=== PATIENT | male | born 1940 | race Asian ===

== ENCOUNTER 2019-05-26 22:24 | Inpatient (IN) | payer MEDICARE, OTHER ==
[~2019-05-26] VITALS: Ht 154.9 cm; Wt 47.6 kg
[2019-05-26 22:24] VITALS: BP_SYST 121
--- NOTE | 2019-05-26 22:24 | NUR ---
Pt BIB ALS, placed to ER bed 01, to gown, to cardiac. [facility] for evaluation r/t decreases O2 saturations and respiratory distress. Pt alert, responsive AAOx0, [id number]-[id number] dependent. Rhonchi to BBS, even respirations, mildly labored. RT at bedside, vent settings: F12, Vt 400, FiO2 100%, PEEP 5, PIP 35 with SPO2 at 100%. PICC in place to RUE, dsg secure and intact. G-tube secure, dsg clean. F/C in place with yellow urine to bag.
--- NOTE | 2019-05-26 22:30 | NUR ---
Dr. Coon at bedside to assess pt.
[2019-05-26] MEDS ORDERED: PIPERACILLIN/TAZO 3.38 GM in D5W 50 ML IV ONE (22:45)
[2019-05-26] MEDS ORDERED: NS 500 ML IV ONE (23:00)
--- NOTE | 2019-05-26 23:05 | NUR ---
# 18 gauge PICC present to RUE with dsg secure and intact, dated 05/26/19. Blood return noted, easy NS flush. 10 mL waste drawn and discarded. Blood for lab drawn from site and sent to lab. No evidence of infiltration noted.
[2019-05-26] MEDS ORDERED: PIPERACILLIN/TAZOBACTAM 3.375 GM/VIAL (ZOSYN) IV ONE (23:10)
[2019-05-26 23:29] LABS: HEMATOCRIT 28.2 % (36-54); HEMOGLOBIN 9.2 g/dL (14.0-18.0); LYMPHOCYTES # (AUTO) 0.3 K/uL (1.0-5.5); LYMPHOCYTES % (AUTO) 2.3 % (20.5-51.5); MEAN CORPUSCULAR HEMOGLOBIN 35 pg (27-31); MEAN CORPUSCULAR HGB CONC 33 % (32-36); MEAN CORPUSCULAR VOLUME 106 fL (79.0-98.0); MONOCYTES # (AUTO) 0.6 K/uL (0.0-1.0); MONOCYTES % (AUTO) 5.1 % (1.7-9.3); NEUTROPHILS # (AUTO) 10.4 K/uL (1.8-7.7); NEUTROPHILS % (AUTO) 92.6 % (40.0-70.0); PLATELET COUNT (AUTO) 141 K/uL (130-430); RED BLOOD CELL COUNT(AUTO) 2.66 MIL/uL (4.2-6.2); RED CELL DISTRIBUTION WIDTH 18.5 % (9.0-15.0); WHITE BLOOD COUNT (AUTO) 11.3 K/uL (4.8-10.8)
[2019-05-26 23:44] LABS: ANION GAP 9 (5-15); CALCIUM 8.9 mg/dL (8.4-11.0); CHLORIDE 107 mmol/L (98-107); CREATININE 1.92 mg/dL (0.55-1.30); GLUCOSE 181 mg/dL (70-99); SODIUM SERUM 139 mmol/L (136-145)
[2019-05-26 23:47] LABS: PROTHROMBIN TIME 9.6 SECS (9.5-12.5)
[2019-05-26 23:49] LABS: ALANINE AMINOTRANSFERASE 29 U/L (12-78); ALBUMIN 2.7 g/dL (3.4-4.8); ASPARTATE AMINOTRANSFERASE 15 U/L (10-37); TOTAL BILIRUBIN 0.3 mg/dL (0.0-1.0)
[2019-05-26 23:51] LABS: POTASSIUM 6.5 mmol/L (3.5-5.1)
[2019-05-26 23:52] LABS: UREA NITROGEN, BLOOD 130 mg/dL (8-21)
[2019-05-27] VITALS (23 sets, daily range): BP systolic 69–120
[2019-05-27] MEDS ORDERED: NACL 0.9% 1,000 ML IV ONE (00:30)
[2019-05-27] MEDS ORDERED: SODIUM POLYSTYRENE SULFONATE 15 GM/60 ML UDBTL PO ONE (00:30)
--- NOTE | 2019-05-27 02:23 | NUR ---
Pt moved to bed 4
[2019-05-27] MEDS ORDERED: SODIUM POLYSTYRENE SULFONATE 15 GM/60 ML UDBTL ONE (02:36)
[2019-05-27 02:52] LABS: BILIRUBIN,URINE NEGATIVE (NEGATIVE); BLOOD, URINE 2+ (NEGATIVE); CLARITY/URINE CLEAR (CLEAR); COLOR,URINE YELLOW (YELLOW); GLUCOSE,URINE TRACE (NEGATIVE); KETONES,URINE NEGATIVE (NEGATIVE); LEUKOCYTE ESTERASE ,URINE NEGATIVE (NEGATIVE); NITRITE, URINE NEGATIVE (NEGATIVE); PROTEIN URINE 2+ (NEGATIVE); UROBILINOGEN,URINE 0.2 (0.2-1.0)
[2019-05-27 03:12] LABS: BACTERIA,URINE FEW /HPF (None Seen); WBC,URINE 0-3 /HPF (0-3)
--- NOTE | 2019-05-27 03:25 | NUR ---
Pt pulling at trach tube and disconnects from Vent. Immediately replaced. No respiratory distress noted, SPO2 96%. Pt also had a large BM and puts his hands in the BM. Pt cleaned, new gown applied, bed linens changed. Dr. Coon notified. Pt to receive Ativan.
[2019-05-27] MEDS ORDERED: LORazepam 2 MG/ML VIAL IVP ONE ×2 (03:30→05:45)
--- NOTE | 2019-05-27 04:25 | NUR ---
Pt peeled off edge of dsg to RUE PICC line. Old dsg removed, no redness or swelling to PICC insertion site. Site cleaned using sterile technique and new dsg applied. Good blood return noted, easy NS flush. NS bolus continues to infuse without difficulty. VSS. Mild tachypnea noted, SPO2 96%, no changes in Vent settings. Dr. Coon at bedside. X-ray to confirm PICC line placement and Neb tx ordered. RT notified.
[2019-05-27] MEDS ORDERED: IPRATROPIUM BROM 0.5 MG/2.5 ML VIAL.NEB (ATROVENT) INH ONE (04:30)
[2019-05-27] MEDS ORDERED: ALBUTEROL SULFATE 0.083% 2.5 MG/3 ML VIAL.NEB INH ONE (04:30)
--- NOTE | 2019-05-27 04:30 | NUR ---
Dr. Coon notified of increased aggitation. Order received for soft wrist restraints.
--- NOTE | 2019-05-27 04:38 | NUR ---
X-ray at bedside.
--- NOTE | 2019-05-27 04:45 | NUR ---
RT at bedside to administer Neb tx.
--- NOTE | 2019-05-27 05:25 | NUR ---
Dark brown BM. Pt cleaned. Redness and excoriation noted to sacrum and inner gluteal folds. New gown and linens applied.
[2019-05-27] MEDS ORDERED: NOREPINEPHRINE BITARTRATE 4 MG in NS 246 ML IV ONE (05:30)
--- NOTE | 2019-05-27 05:40 | NUR ---
# 16 FR Coude Clarke catheter with use of sterile technique. No urinary return noted at this time. Dr. Coon notified. Bedside drainage bag placed below level of bladder. Pt tolerated procedure fair. Patient arrived with clarke in place, changed due to standard of practice prior to admission. Patient unable to toilet self.
[2019-05-27] MEDS ORDERED: CALCIUM GLUCONATE 1 GM in NS 100 ML IV ONE (05:45)
[2019-05-27] MEDS ORDERED: SODIUM BICARBONATE 8.4% JECT 50 MEQ/50 ML SYRINGE IVP ONE ×3 (05:45→19:00)
--- NOTE | 2019-05-27 06:04 | NUR ---
B/P 70/46, P 93. Levophed drip started at 2 mcg/min.
[2019-05-27] MEDS ORDERED: NOREPINEPHRINE 4 MG/4 ML VIAL IV ONE (06:12)
[2019-05-27] MEDS ORDERED: NOREPINEPHRINE BITARTRATE 4 MG in NS 246 ML IV PRN (06:15)
--- NOTE | 2019-05-27 06:15 | NUR ---
B/P 74/38, P 92. Levophed increased to 4 mcg/min.
--- NOTE | 2019-05-27 06:20 | NUR ---
B/P 89/43, HR 101. Levophed increased to 6 mcg/min.
[2019-05-27] MEDS ORDERED: VANCOMYCIN HCL 1,000 MG in NS 250 ML IV ONE ×2 (06:30→10:00)
--- NOTE | 2019-05-27 06:30 | NUR ---
B/P 87/53, P 99, SPO2 97% with no changes in Vent Settings. Levophed drip increased to 8 mcg/min.
--- NOTE | 2019-05-27 06:45 | NUR ---
B/P 78/30, P 91, SPO2 98% with no changes in vent settings. Levophed drip increased to 10 mcg/min.
--- NOTE | 2019-05-27 06:55 | NUR ---
B/P 87/53, P 96. Levophed increased to 12 mcg/min.
--- NOTE | 2019-05-27 07:05 | NUR ---
B/P 76/41, P 91. Levophed increased to 14 mcg/min.
--- NOTE | 2019-05-27 07:10 | NUR ---
Report Report received from Can MITCHELL using SBAR. Pt is currently in ER.
[2019-05-27] MEDS ORDERED: VANCOMYCIN HCL 1000 MG/VIAL IV ONE (07:34)
[2019-05-27] MEDS ORDERED: VITD2000 PO (07:52)
[2019-05-27] MEDS ORDERED: FURO-150 PO (07:52)
[2019-05-27] MEDS ORDERED: MULT9LIQ PO (07:52)
[2019-05-27] MEDS ORDERED: GLUC1VIA4 IJ (07:52)
[2019-05-27] MEDS ORDERED: INSU100V42 (07:52)
[2019-05-27] MEDS ORDERED: FAMO-132 PO (07:52)
[2019-05-27] MEDS ORDERED: BRI.2% LEFT EYE (07:52)
[2019-05-27] MEDS ORDERED: CEL250 PO (07:52)
[2019-05-27] MEDS ORDERED: PREDEYE1% LEFT EYE (07:52)
[2019-05-27] MEDS ORDERED: PSYL1POW MC (07:52)
[2019-05-27] MEDS ORDERED: GUAI100L55 PO (07:52)
[2019-05-27] MEDS ORDERED: ROSU10TA2 PO (07:52)
[2019-05-27] MEDS ORDERED: MES60 PO (07:52)
[2019-05-27] MEDS ORDERED: SENN17.24 PO (07:52)
[2019-05-27] MEDS ORDERED: EPOE20005 IJ (07:52)
[2019-05-27] MEDS ORDERED: L. A1POW4 GT (07:52)
[2019-05-27] MEDS ORDERED: FLUC200T PO (07:52)
[2019-05-27] MEDS ORDERED: CYAN100010 PO (07:52)
[2019-05-27] MEDS ORDERED: MYL80 PO (07:52)
[2019-05-27] MEDS ORDERED: PRED5TAB PO (07:52)
[2019-05-27] MEDS ORDERED: XALEYE OP (07:52)
[2019-05-27] MEDS ORDERED: ACET-2165 PO (07:52)
[2019-05-27] MEDS ORDERED: ATOR20TA64 PO (07:52)
[2019-05-27] MEDS ORDERED: ASA81 PO (07:52)
[2019-05-27] MEDS ORDERED: DORZ10DR13 LEFT EYE (07:52)
[2019-05-27] MEDS ORDERED: LOSA50TA3 PO (07:52)
[2019-05-27] MEDS ORDERED: CAT.1 PO (07:52)
--- NOTE | 2019-05-27 07:52 | NUR ---
Medication reconciliation completed with information provided by Facility. Any prior medication reconciliation on file was reviewed and corrected.
--- NOTE | 2019-05-27 08:05 | NUR ---
Patient will be admitted to care of Dr. Beth. Admitted to ICU unit. Will go to room 2. Belongings list completed. Complete and up to date summary report printed. SBAR report to be given at bedside with opportunity for questions.
--- NOTE | 2019-05-27 08:05 | NUR ---
Transferred Pt arrived to ICU bed 2 via gurney from ER. RT is at bedside with pt assisting with transfer. Pt is connected to in room monitor.
[2019-05-27] MEDS ORDERED: ACETAMINOPHEN 325 MG TABLET PO PRN (08:30)
[2019-05-27] MEDS ORDERED: cloNIDine HCL 0.1 MG TABLET PO PRN (08:30)
--- NOTE | 2019-05-27 08:40 | NUR ---
CHG Pt provided CHG with new linen and gown
[2019-05-27] MEDS ORDERED: GLUCAGON,HUMAN RECOMBINANT 1 MG VIAL SUBCUT PRN (08:45)
[2019-05-27] MEDS ORDERED: PREDNISONE 5 MG TABLET PO SCH (09:00)
[2019-05-27] MEDS ORDERED: ASPIRIN 81 MG TAB.CHEW PO SCH (09:00)
[2019-05-27] MEDS ORDERED: LACTOBACILLUS RHAMNOSUS GG 1 CAP CAPSULE PO SCH (09:00)
[2019-05-27] MEDS ORDERED: MYCOPHENOLATE MOFETIL 250 MG CAPSULE PO SCH (09:00)
[2019-05-27] MEDS ORDERED: CYANOCOBALAMIN 1000 mCg TABLET PO SCH (09:00)
[2019-05-27] MEDS ORDERED: FUROSEMIDE 20 MG TABLET PO SCH (09:00)
[2019-05-27] MEDS ORDERED: FAMOTIDINE 20 MG TABLET PO SCH (09:00)
[2019-05-27] MEDS ORDERED: MULTIVIT-MINERALS/FERROUS GLUC 15 ML UDC PO SCH (09:00)
[2019-05-27] MEDS ORDERED: SIMETHICONE 80 MG TAB.CHEW PO SCH (09:00)
[2019-05-27] MEDS ORDERED: HYDROCORTISONE SOD SUCC 100 MG/2 ML VIAL IVP ONE (09:00)
[2019-05-27] MEDS ORDERED: LOSARTAN POTASSIUM 50 MG TABLET (COZAAR) PO SCH (09:00)
[2019-05-27] MEDS ORDERED: CHOLECALCIFEROL (VITAMIN D3) 2,000 UNIT TABLET PO SCH (09:00)
[2019-05-27] MEDS ORDERED: PYRIDOSTIGMINE BROMIDE 60 MG TABLET PO SCH (09:00)
[2019-05-27] MEDS ORDERED: PSYLLIUM HUSK 1 PKT PACKET PO SCH (09:00)
[2019-05-27] MEDS ORDERED: FLUCONAZOLE 200 MG TABLET (DIFLUCAN) PO SCH (09:00)
[2019-05-27 09:17] LABS: EOSINOPHILS % (AUTO) 0.2 % (0.0-4.0); HEMATOCRIT 24.8 % (36-54); HEMOGLOBIN 8.1 g/dL (14.0-18.0); LYMPHOCYTES # (AUTO) 0.3 K/uL (1.0-5.5); MEAN CORPUSCULAR HEMOGLOBIN 35 pg (27-31); MEAN CORPUSCULAR HGB CONC 33 % (32-36); MEAN CORPUSCULAR VOLUME 107 fL (79.0-98.0); MONOCYTES # (AUTO) 0.2 K/uL (0.0-1.0); MONOCYTES % (AUTO) 3.2 % (1.7-9.3); NEUTROPHILS # (AUTO) 4.3 K/uL (1.8-7.7); NEUTROPHILS % (AUTO) 90.6 % (40.0-70.0); PLATELET COUNT (AUTO) 95 K/uL (130-430); RED BLOOD CELL COUNT(AUTO) 2.32 MIL/uL (4.2-6.2); RED CELL DISTRIBUTION WIDTH 18.7 % (9.0-15.0); WHITE BLOOD COUNT (AUTO) 4.7 K/uL (4.8-10.8)
[2019-05-27 09:34] LABS: ANION GAP 13 (5-15); CALCIUM 8.2 mg/dL (8.4-11.0); CHLORIDE 118 mmol/L (98-107); GLUCOSE 107 mg/dL (70-99); POTASSIUM 4.4 mmol/L (3.5-5.1); SODIUM SERUM 149 mmol/L (136-145)
[2019-05-27 09:38] LABS: ALANINE AMINOTRANSFERASE 20 U/L (12-78); ALBUMIN 1.9 g/dL (3.4-4.8); ASPARTATE AMINOTRANSFERASE 18 U/L (10-37); TOTAL BILIRUBIN 0.3 mg/dL (0.0-1.0)
[2019-05-27 09:40] LABS: UREA NITROGEN, BLOOD 120 mg/dL (8-21)
--- NOTE | 2019-05-27 09:57 | NUR ---
Consultation Paged for consult Dr. Fierro, spoke to Gayathri with the exchange.
--- NOTE | 2019-05-27 10:02 | NUR ---
Family Pt daughter in -law at bedside with pt. Informed pt's daughter in-law of call light and how to use. Will continue to monitor.
[2019-05-27] MEDS ORDERED: ACETAMINOPHEN 325 MG TABLET GT PRN (10:25)
[2019-05-27] MEDS ORDERED: cloNIDine HCL 0.1 MG TABLET GT PRN (10:27)
[2019-05-27] MEDS ORDERED: PREDNISONE 5 MG TABLET GT SCH (10:30)
[2019-05-27] MEDS ORDERED: COMMUNICATION ORDER XX ONE (10:30)
[2019-05-27] MEDS: D5NS 1,000 ML IV SCH ×3 (11:09→19:01)
[2019-05-27] MEDS: PIPERACILLIN/TAZOBACTAM 2.25 GM in NS 50 ML IV SCH ×3 (11:10→21:31)
[2019-05-27] MEDS: DORZOLAMIDE HCL/TIMOLOL MAL. 10 ML EYE DROPS (COSOPT) LEFT EYE SCH ×2 (11:14→21:29)
[2019-05-27] MEDS: BRIMONIDINE TARTRATE 0.2% 5 mL EYE DROPS LEFT EYE SCH ×2 (11:14→21:29)
[2019-05-27] MEDS: prednisoLONE 1% OPHTHALMIC SUSPN 5 ML OP SCH ×4 (11:15→21:29)
[2019-05-27] MEDS: guaiFENesin 200 MG/10 ML UDC GT SCH ×4 (11:27→23:19)
[2019-05-27] MEDS: PYRIDOSTIGMINE BROMIDE 60 MG TABLET GT SCH ×3 (13:50→21:30)
[2019-05-27] MEDS: HYDROCORTISONE SOD SUCC 100 MG/2 ML VIAL IVP SCH ×2 (13:50→21:30)
[2019-05-27] MEDS: LevALBUTEROL HCL 1.25 MG/0.5 ML *CONC.* VIAL.NEB (XOPENEX CONC.) INH SCH ×2 (14:01→19:30)
[2019-05-27] MEDS: SIMETHICONE 80 MG TAB.CHEW GT SCH ×2 (14:02→21:30)
[2019-05-27] MEDS: PSYLLIUM HUSK 1 PKT PACKET GT SCH ×2 (14:02→21:31)
--- NOTE | 2019-05-27 15:43 | NUR ---
Paged Dr. Patel for orders. Spoke with exchange.
[2019-05-27] MEDS ORDERED: EPOETIN ALFA 4,000 UNITS/ML VIAL SUBCUT SCH (17:00)
[2019-05-27] MEDS ORDERED: DEXTROSE 50%-WATER 50 ML DISP.SYRIN IVP PRN (17:15)
[2019-05-27] MEDS ORDERED: GLUCOSE 15 GM GEL (in 37.5 GM TUBE) PO PRN (17:15)
[2019-05-27] MEDS ORDERED: D5W 1,000 ML IV PRN (17:15)
--- NOTE | 2019-05-27 18:03 | NUR ---
MD Dr. Sylvia chin. spoke to Maria G with the exchange.
[2019-05-27] MEDS: INSULIN REGULAR, HUMAN 100 UNITS/ML, 10 ML VIAL (humuLIN R) SUBCUT PRN (18:11)
--- NOTE | 2019-05-27 18:24 | NUR ---
MD Dr. Fierro at bedside with pt
--- NOTE | 2019-05-27 18:40 | NUR ---
Feeding Spoke to pts daughter regarding, pt previously experienced a reaction to the previous feeding peptamen 1.5 causing "explosive diarrhea" that resulted in IAD. Pt was started on "Compleat" g-tube feeding last night prior to being transported to [facility]. Valerie was provided the suggestion to obtain that specific feeding from [facility], but Pts daughter Valerie stated that she would like for us to hold feeding until a coffin maker assess pt.
--- NOTE | 2019-05-27 18:50 | NUR ---
paged paged for Dr Ward, dialed . s/w Jerrica
[2019-05-27] MEDS ORDERED: SODIUM BICARBONATE 8.4% JECT 100 MEQ in D5W 1,000 ML IV SCH (19:00)
--- NOTE | 2019-05-27 19:10 | NUR ---
Closing Notes Pt endorsed to night RN using SBAR
[2019-05-27] MEDS ORDERED: SODIUM BICARBONATE 8.4% JECT 50 MEQ/50 ML SYRINGE ONE (19:13)
--- NOTE | 2019-05-27 19:30 | NUR ---
PM ASSESSMENT REPORT RECEIVED FROM ADAM MITCHELL. PT RECEIVED IN BED WITH EYES CLOSED, RESPONDING TO TACTILE STIMULATION. VSS, NO S/S OF ACUTE DISTRESS NOTED. PT TRACH TO VENT, VENT SETTINGS: AC 22, TV 350, FIO2 40%, PEEP 5. ST ON MONITOR. ZAHIDA PICC INFUSING D5NS @ 150 CC/HR AND LEVOPHED DRIP @ 16 MCG/MIN. BILATERAL SOFT WRIST RESTRAINTS IN PLACE, NO S/S OF INJURY NOTED. G-TUBE IN PLACE CLAMPED. CUETO CATH IN PLACE DRAINING YELLOW URINE TO GRAVITY. SCDS IN PLACE. HOB ELEVATED, BED IN LOWEST POSITION, CALL LIGHT IN REACH. WILL CONTINUE TO MONITOR PT.
[2019-05-27] MEDS ORDERED: SODIUM BICARBONATE 8.4% VIAL 50 MEQ/50 ML VIAL ONE ×2 (20:21→23:28)
[2019-05-27] MEDS: NOREPINEPHRINE BITARTRATE 8 MG in NS 242 ML IV PRN (20:24)
--- NOTE | 2019-05-27 20:30 | NUR ---
paged paged for Dr Ward, dialed . s/w Jerrica.
--- NOTE | 2019-05-27 20:43 | NUR ---
DOUBLE STRENGTH LEVOPHED PT PLACED ON DOUBLE STRENGTH LEVOPHED 8 MCG/MIN AT THIS TIME. PREVIOUSLY ON 16 MCG/MIN SINGLE STRENGTH. WILL CONTINUE TO MONITOR PT.
--- NOTE | 2019-05-27 20:52 | NUR ---
DR. BRANDI KINNEY MADE AWARE OF ABGS AT THIS TIME. PER MD CHANGE RATE TO AC 22. ALSO MADE AWARE THAT PT ONLY HAS A SINGLE LUMEN PICC AND UNABLE TO RUN LEVOPHED AND FLUIDS WITH SODIUM BICARB THROUGH Y-SITE D/T INCOMPATIBILITY. MADE AWARE THAT PERIPHERAL IV IS BEING ATTEMPTED AT THIS TIME. ORDERS RECEIVED FOR DOUBLE LUMEN PICC PLACEMENT. WILL BE CARRIED OUT ORDERED.
[2019-05-27] MEDS ORDERED: ATORVASTATIN 20 MG TABLET GT SCH (21:00)
[2019-05-27] MEDS ORDERED: ROSUVASTATIN CALCIUM 5 MG/TAB (CRESTOR) PO SCH (21:00)
[2019-05-27] MEDS: LATANOPROST 2.5 ML DROPS (XALATAN) OP SCH (21:29)
[2019-05-27] MEDS: LACTOBACILLUS RHAMNOSUS GG 1 CAP CAPSULE GT SCH (21:30)
[2019-05-27] MEDS: MYCOPHENOLATE MOFETIL 250 MG CAPSULE GT SCH (21:30)
--- NOTE | 2019-05-27 22:36 | NUR ---
paged paged for Dr Ward, dialed . s/w Emeli.
--- NOTE | 2019-05-27 22:55 | NUR ---
DR. BRANDI KINNEY MADE AWARE THAT WE WERE UNABLE TO PLACE A PERIPHERAL IV SITE AT THIS TIME. STATES TO CHANGE FLUIDS TO D5 1/2 NS AND GIVE 1 AMP BICARB IV PUSH. UNTIL WE CAN OBTAIN DOUBLE LUMEN PICC. ABGS IN AM. WILL CARRY OUT ORDERED AND CONTINUE TO MONITOR PT.
--- NOTE | 2019-05-27 23:00 | NUR ---
PEEP PT ON HIGH DOSE OF DOUBLE CONCENTRATION LEVOPHED FOR BP SUPPORT. PEEP DISCONTINUED AT THIS TIME BY RT TO AID IN BP SUPPORT. WILL CONTINUE TO MONITOR PT.
--- NOTE | 2019-05-27 23:10 | NUR ---
FAMILY MESSAGE LEFT TO DAUGHTER ALEXANDRIA FOR PICC LINE PLACEMENT AT THIS TIME. WILL AWAIT CALL BACK.
[2019-05-27] MEDS ORDERED: SODIUM BICARBONATE 8.4% JECT 50 MEQ/50 ML SYRINGE IVP SCH (23:15)
[2019-05-27] MEDS: D5/0.45 NS 1,000 ML IV SCH (23:19)
[2019-05-28] VITALS (30 sets, daily range): BP systolic 82–120
[2019-05-28] MEDS: LevALBUTEROL HCL 1.25 MG/0.5 ML *CONC.* VIAL.NEB (XOPENEX CONC.) INH SCH ×4 (01:38→19:45)
--- NOTE | 2019-05-28 01:40 | NUR ---
VENT CHANGES PT SEEN DESATURATING ON THE MONITOR. FIO2 INCREASED TO 50% BY RT. WILL CONTINUE TO MONITOR PT.
[2019-05-28] MEDS: guaiFENesin 200 MG/10 ML UDC GT SCH ×6 (02:07→23:07)
[2019-05-28] MEDS: PIPERACILLIN/TAZOBACTAM 2.25 GM in NS 50 ML IV SCH ×4 (02:08→21:12)
[2019-05-28] MEDS: NOREPINEPHRINE BITARTRATE 8 MG in NS 242 ML IV PRN ×6 (02:08→23:42)
--- NOTE | 2019-05-28 05:27 | NUR ---
FAMILY UPDATE TELEPHONE CONSENT OBTAINED FROM DAUGHTER ALEXANDRIA GERARDO FOR DOUBLE LUMEN PICC PLACEMENT AT THIS TIME. FAMILY ALSO UPDATED ON PT CONDITION AND CLARIFICATION ON CODE STATUS. DAUGHTER STATES THAT AT THIS TIME PT IS DNR STATUS, BUT WOULD LIKE TO SPEAK WITH HER BROTHER TO CONFIRM CODE STATUS. WILL ENDORSE TO DAYSHIFT TO FOLLOW UP.
[2019-05-28] MEDS: HYDROCORTISONE SOD SUCC 100 MG/2 ML VIAL IVP SCH (06:07)
[2019-05-28 06:44] LABS: BASOPHILS % (AUTO) 0.2 % (0.0-2.0); EOSINOPHILS % (AUTO) 0.2 % (0.0-4.0); HEMATOCRIT 28.1 % (36-54); HEMOGLOBIN 9.2 g/dL (14.0-18.0); LYMPHOCYTES # (AUTO) 0.1 K/uL (1.0-5.5); LYMPHOCYTES % (AUTO) 2.3 % (20.5-51.5); MEAN CORPUSCULAR HEMOGLOBIN 35 pg (27-31); MEAN CORPUSCULAR HGB CONC 33 % (32-36); MEAN CORPUSCULAR VOLUME 108 fL (79.0-98.0); MONOCYTES # (AUTO) 0.1 K/uL (0.0-1.0); NEUTROPHILS # (AUTO) 4.7 K/uL (1.8-7.7); NEUTROPHILS % (AUTO) 95.3 % (40.0-70.0); PLATELET COUNT (AUTO) 61 K/uL (130-430); RED BLOOD CELL COUNT(AUTO) 2.62 MIL/uL (4.2-6.2); RED CELL DISTRIBUTION WIDTH 19.5 % (9.0-15.0); WHITE BLOOD COUNT (AUTO) 4.9 K/uL (4.8-10.8)
[2019-05-28 06:58] LABS: ALANINE AMINOTRANSFERASE 29 U/L (12-78); ALBUMIN 1.3 g/dL (3.4-4.8); ANION GAP 12 (5-15); CALCIUM 7.1 mg/dL (8.4-11.0); GLUCOSE 146 mg/dL (70-99); POTASSIUM 3.6 mmol/L (3.5-5.1); SODIUM SERUM 154 mmol/L (136-145); TOTAL BILIRUBIN 0.4 mg/dL (0.0-1.0)
[2019-05-28 07:03] LABS: INR 1.5 (0.80-1.20); PROTHROMBIN TIME 15.2 SECS (9.5-12.5)
[2019-05-28 07:04] LABS: CHLORIDE 121 mmol/L (98-107)
[2019-05-28 07:06] LABS: UREA NITROGEN, BLOOD 112 mg/dL (8-21)
--- NOTE | 2019-05-28 07:07 | NUR ---
Nutrition Update Efren Scale 13 noted. Pt admitted for Septic shock Diet: Pivot 1.5 at 60ml/hr, FWF 100ml via GT BMI: 17 kg/m2 RD to follow per nutrition care standards.
--- NOTE | 2019-05-28 07:20 | NUR ---
AM ASSESSMENT Pt received from night RN using SBAR.
[2019-05-28 07:26] LABS: ASPARTATE AMINOTRANSFERASE 46 U/L (10-37)
[2019-05-28] MEDS: D5/0.45 NS 1,000 ML IV SCH ×3 (08:36→23:43)
[2019-05-28] MEDS: CHOLECALCIFEROL (VITAMIN D3) 2,000 UNIT TABLET GT SCH (08:37)
[2019-05-28] MEDS: PSYLLIUM HUSK 1 PKT PACKET GT SCH ×3 (08:37→21:12)
[2019-05-28] MEDS: LACTOBACILLUS RHAMNOSUS GG 1 CAP CAPSULE GT SCH ×2 (08:37→21:11)
[2019-05-28] MEDS: SIMETHICONE 80 MG TAB.CHEW GT SCH ×3 (08:37→21:12)
[2019-05-28] MEDS: FLUCONAZOLE 200 MG TABLET (DIFLUCAN) GT SCH (08:37)
[2019-05-28] MEDS: ASPIRIN 81 MG TAB.CHEW GT SCH (08:37)
[2019-05-28] MEDS: FAMOTIDINE 20 MG TABLET GT SCH (08:37)
[2019-05-28] MEDS: MYCOPHENOLATE MOFETIL 250 MG CAPSULE GT SCH ×2 (08:38→21:11)
[2019-05-28] MEDS: MULTIVIT-MINERALS/FERROUS GLUC 15 ML UDC GT SCH (08:39)
[2019-05-28] MEDS: PYRIDOSTIGMINE BROMIDE 60 MG TABLET GT SCH ×4 (08:39→21:11)
[2019-05-28] MEDS: CYANOCOBALAMIN 1000 mCg TABLET GT SCH (08:40)
[2019-05-28] MEDS: BRIMONIDINE TARTRATE 0.2% 5 mL EYE DROPS LEFT EYE SCH ×2 (08:40→21:13)
[2019-05-28] MEDS: prednisoLONE 1% OPHTHALMIC SUSPN 5 ML OP SCH ×4 (08:41→21:13)
[2019-05-28] MEDS: DORZOLAMIDE HCL/TIMOLOL MAL. 10 ML EYE DROPS (COSOPT) LEFT EYE SCH ×2 (08:41→21:13)
[2019-05-28] MEDS ORDERED: NOREPINEPHRINE 4 MG/4 ML VIAL IV ONE (08:47)
[2019-05-28] MEDS ORDERED: SODIUM BICARBONATE 8.4% JECT 50 MEQ/50 ML SYRINGE IVP ONE (09:00)
[2019-05-28] MEDS: LOSARTAN POTASSIUM 50 MG TABLET (COZAAR) GT SCH (09:00)
[2019-05-28] MEDS ORDERED: SODIUM BICARBONATE 8.4% JECT 50 MEQ/50 ML SYRINGE ONE (09:07)
--- NOTE | 2019-05-28 09:30 | NUR ---
CHG Pt provided CHG with total linen change. pt tolerated well, will continue to monitor
[2019-05-28] MEDS ORDERED: methylPREDNISolone SOD SUCC/PF 62.5 MG/ML VIAL IVP ONE (09:45)
--- NOTE | 2019-05-28 09:45 | NUR ---
0858 PT PLACED ON AC30 TV [address] PAZ ORDER. RN AWARE.WILL CONT. MONITORING.
--- NOTE | 2019-05-28 10:10 | NUR ---
Levophed Dr. Ward gave verbal orders to titrate Double strength Levophed to 50 mcg/min if needed.
--- NOTE | 2019-05-28 11:16 | NUR ---
Dietitian Recommendations *Recommend Pivot 1.5 at 30ml/hr (goal rate), Rolando BID, Banatrol TID, FWF 100ml Q6H via GT. Provides: 1240 kcal, 73 gm protein and 946ml/day. Meets: 112% of estimated calorie needs and 96% of upper end of estimated protein needs. Please see Nutritional Assessment for details. SENIOR CARE, RD
--- NOTE | 2019-05-28 12:31 | NUR ---
Resting Pt is resting in bed with eyes closed, no signs of distress
--- NOTE | 2019-05-28 13:24 | NUR ---
CLINICAL INFORMATICS PHYSICIAN MUD TANK OPERATOR DR ADAM WAS CALLED RE: TO GET CLEARANCE FOR PICC LINE INSERTION. SPOKE TO NOAH.
--- NOTE | 2019-05-28 13:50 | NUR ---
MD Dr. Fierro called back and gave authorization for pt to receive PICC line.
[2019-05-28] MEDS: methylPREDNISolone SOD SUCC/PF 62.5 MG/ML VIAL IVP SCH ×2 (14:38→21:14)
--- NOTE | 2019-05-28 15:55 | NUR ---
PICC Double lumen PICC line placed to right upper arm using sterile technique via vascular associate professor of art history. X-ray confirmed placement.
--- NOTE | 2019-05-28 16:16 | NUR ---
Family Pts daughter Valerie informed of dietary recommendation and stated she is ok to start tube feeding. Daughter also informed of PICC line insertion.
--- NOTE | 2019-05-28 17:52 | NUR ---
MD Dr. Fierro at bedside, made aware of pts low urinary output post this mornings alerting of the evening shifts low urine output.
--- NOTE | 2019-05-28 19:15 | NUR ---
Closing Notes Pt endorsed to night RN using SBAR.
--- NOTE | 2019-05-28 19:25 | NUR ---
Family Pt's family is at bedside, update given.
--- NOTE | 2019-05-28 19:45 | NUR ---
F1O2 DECREASED TO 45% BY RT PER STANDING TITRATE ORDERS.
--- NOTE | 2019-05-28 20:00 | NUR ---
OBTUNDED. RESPONDS TO NOXIOUS AND PAINFUL STIMULI. TRACH TO VENT. SUCTIONED WITH MOD AMOUNT OF THICK BROWNISH MUCUS OBTAINED. ORAL CARE GIVEN. GT FEEDING WITH PIVOT 1.5 AT 20CC/HR. RESIDUAL CHECK 50CC. GT FLUSHED WITH 200CC H2O. ZAHIDA PICC LINE DRSG D/I. ON LEVOPHED DRIP AT 34 MCG/MIN, DOUBLE CONCENTRATE. CUETO CATH PATENT DRAINING CLOUDY MICKY URINE TO GRAVITY. SINUS TACHYCARDIA.
--- NOTE | 2019-05-28 21:00 | NUR ---
1 PACKET OF ASHLIE GIVEN VIA GT.
[2019-05-28] MEDS: LATANOPROST 2.5 ML DROPS (XALATAN) OP SCH (21:14)
--- NOTE | 2019-05-28 21:35 | NUR ---
FIO2 DECREASED TO 40% BY RT PER TITRATE STANDING ORDERS.
--- NOTE | 2019-05-28 22:00 | NUR ---
SUCTIONED. TURNED. HS CARE GIVEN.
--- NOTE | 2019-05-28 23:20 | NUR ---
FIO2 DECREASED TO 35% BY RT PER STANDING TITRATE ORDERS.
[2019-05-29] VITALS (29 sets, daily range): BP systolic 89–151
--- NOTE | 2019-05-29 | NUR ---
GT FEEDING INCREASED TO GOAL OF 30CC/HR
--- NOTE | 2019-05-29 | NUR ---
SUCTIONED. TURNED. ORAL CARE GIVEN. ACCU-CHEK 176, 2 UNITS REGULAR INSULIN SQ GIVEN PER SLIDING SCALE COV. RESIDUAL CHECK 30CC, GT FLUSHED WITH 200CC H2O. 1 PACKET BANA TROL GIVEN VIA GT. OLIGURIC.
[2019-05-29] MEDS: INSULIN REGULAR, HUMAN 100 UNITS/ML, 10 ML VIAL (humuLIN R) SUBCUT PRN ×4 (00:19→17:27)
[2019-05-29] MEDS: LevALBUTEROL HCL 1.25 MG/0.5 ML *CONC.* VIAL.NEB (XOPENEX CONC.) INH SCH ×4 (01:05→19:34)
--- NOTE | 2019-05-29 02:00 | NUR ---
BP LABILE, LEVO LEFT AT 34MCG/MIN. SUCTIONED. TURNED AND REPOSITIONED.
[2019-05-29] MEDS ORDERED: NOREPINEPHRINE 4 MG/4 ML VIAL IV ONE ×3 (02:48→13:45)
[2019-05-29] MEDS: guaiFENesin 200 MG/10 ML UDC GT SCH ×6 (02:58→22:05)
[2019-05-29] MEDS: PIPERACILLIN/TAZOBACTAM 2.25 GM in NS 50 ML IV SCH ×2 (02:59→08:36)
--- NOTE | 2019-05-29 04:00 | NUR ---
BP LABILE. SUCTIONED. ORAL CARE RENDERED. TURNED. RESIDUAL CHECK 60CC, GT FLUSHED WITH 200CC H2O.
[2019-05-29] MEDS: NOREPINEPHRINE BITARTRATE 8 MG in NS 242 ML IV PRN (04:02)
--- NOTE | 2019-05-29 06:00 | NUR ---
1 LARGE LBM DEFECATED. CLEANED. HANANE-CARE, SKIN CARE, CUETO CARE, BACK CARE DONE. Z-GUARD APPLIED TO PERINEUM. PARTIAL LINEN CHANGE DONE. DOES NOT ASSIST WITH TURNING. KYLEIGH PROC WELL. UO 200CC. ACCU-CHEK 212, 4 UNITS REGULAR INSULIN SQ GIVEN.
[2019-05-29] MEDS: methylPREDNISolone SOD SUCC/PF 62.5 MG/ML VIAL IVP SCH ×3 (06:01→21:56)
[2019-05-29 06:17] LABS: HEMATOCRIT 22.7 % (36-54); HEMOGLOBIN 7.3 g/dL (14.0-18.0); MEAN CORPUSCULAR HEMOGLOBIN 35 pg (27-31); MEAN CORPUSCULAR HGB CONC 32 % (32-36); MEAN CORPUSCULAR VOLUME 108 fL (79.0-98.0); RED BLOOD CELL COUNT(AUTO) 2.11 MIL/uL (4.2-6.2); RED CELL DISTRIBUTION WIDTH 19.9 % (9.0-15.0); WHITE BLOOD COUNT (AUTO) 15.5 K/uL (4.8-10.8)
[2019-05-29 06:24] LABS: PLATELET COUNT (AUTO) 39 K/uL (130-430)
[2019-05-29 06:50] LABS: ANION GAP 15 (5-15); CHLORIDE 117 mmol/L (98-107); CREATININE 2.23 mg/dL (0.55-1.30); GLUCOSE 302 mg/dL (70-99); POTASSIUM 3.5 mmol/L (3.5-5.1); SODIUM SERUM 152 mmol/L (136-145)
--- NOTE | 2019-05-29 06:50 | NUR ---
DR MANNING NOTIFIED OF PLT 39, LOW URINE OUTPUT , BUN 108, CALCIUM 6.1. ORDERED TO CALL DR DE LA FUENTE AND ALSO GET DR GRIFFIN CONSULT. IMPLEMENTED.
--- NOTE | 2019-05-29 07:00 | NUR ---
DR DE LA FUENTE HERE, NOTIFIED OF STATUS, LOW URINE OUTPUT AND LABS. DR DE LA FUENTE AT BEDSIDE ASSESSING PT. NEW ORDERS GIVEN TO BE IMPLEMENTED. ENDORSED TO AM SHIFT STEPHEN FROST.
[2019-05-29 07:01] LABS: CALCIUM 6.1 mg/dL (8.4-11.0); UREA NITROGEN, BLOOD 108 mg/dL (8-21)
--- NOTE | 2019-05-29 07:08 | NUR ---
Called with a consult, spoke with Gerardo from the exchange
--- NOTE | 2019-05-29 08:00 | NUR ---
Initial assessment done. REsponds to deep painful stumuli only. Rmains with trache to vent. Respiration is unlabored. Scope shows NRR-ST. BP remains low, Levophed currently at 34mcg/min. GT tube feeding cont at 30 ml/hr.HOB elevated for aspiration precautions. Perla reddy amts of urineMD is aware
[2019-05-29] MEDS: PSYLLIUM HUSK 1 PKT PACKET GT SCH ×3 (08:31→21:03)
[2019-05-29] MEDS: MYCOPHENOLATE MOFETIL 250 MG CAPSULE GT SCH ×2 (08:31→21:03)
[2019-05-29] MEDS: PYRIDOSTIGMINE BROMIDE 60 MG TABLET GT SCH ×4 (08:31→21:04)
[2019-05-29] MEDS: ASPIRIN 81 MG TAB.CHEW GT SCH (08:32)
[2019-05-29] MEDS: FLUCONAZOLE 200 MG TABLET (DIFLUCAN) GT SCH (08:32)
[2019-05-29] MEDS: LACTOBACILLUS RHAMNOSUS GG 1 CAP CAPSULE GT SCH ×2 (08:32→21:04)
[2019-05-29] MEDS: FAMOTIDINE 20 MG TABLET GT SCH (08:32)
[2019-05-29] MEDS: SIMETHICONE 80 MG TAB.CHEW GT SCH ×3 (08:32→21:04)
[2019-05-29] MEDS: CHOLECALCIFEROL (VITAMIN D3) 2,000 UNIT TABLET GT SCH (08:33)
[2019-05-29] MEDS: CYANOCOBALAMIN 1000 mCg TABLET GT SCH (08:33)
[2019-05-29] MEDS: MULTIVIT-MINERALS/FERROUS GLUC 15 ML UDC GT SCH (08:34)
[2019-05-29] MEDS: LOSARTAN POTASSIUM 50 MG TABLET (COZAAR) GT SCH (08:34)
[2019-05-29] MEDS: prednisoLONE 1% OPHTHALMIC SUSPN 5 ML OP SCH ×4 (08:37→21:04)
[2019-05-29] MEDS: BRIMONIDINE TARTRATE 0.2% 5 mL EYE DROPS LEFT EYE SCH ×2 (08:37→21:05)
[2019-05-29] MEDS: DORZOLAMIDE HCL/TIMOLOL MAL. 10 ML EYE DROPS (COSOPT) LEFT EYE SCH ×2 (08:38→21:05)
--- NOTE | 2019-05-29 09:00 | NUR ---
Dr. Marcum was here, orderes received. Repositioned to side. Dr. Valadez WAS HERE, Update given.
[2019-05-29 09:21] LABS: BAND % (MANUAL) 31 % (0-6); LYMPHOCYTES % (MANUAL) 11 % (20-46)
[2019-05-29 09:22] LABS: BASOPHILS % (MANUAL) 0 % (0-2); EOSINOPHILS % (MANUAL) 0 % (0-7); METAMYELOCYTES % 2 % (0-0); MONOCYTES % (MANUAL) 12 % (0-11); MYELOCYTES % 2 % (0-0)
[2019-05-29] MEDS ORDERED: SODIUM BICARBONATE 8.4% VIAL 50 MEQ/50 ML VIAL INJ ONE (10:00)
[2019-05-29] MEDS: D5/0.45 NS 1,000 ML IV SCH ×2 (11:11→21:12)
[2019-05-29] MEDS ORDERED: VANCOMYCIN HCL 750 MG in NS 250 ML IV SCH (12:00)
--- NOTE | 2019-05-29 12:03 | NUR ---
1105 TITRATED FIO2 DOWN TO 30%. PT TOLERATING WELL
--- NOTE | 2019-05-29 14:20 | NUR ---
Pt had episode of Sinus Bradycardia, 30"s/min. spontaneiusly came back to NSR. Dr Ortega was here, update given. Patient remains Full Code. Spoke to [facility], update given.
--- NOTE | 2019-05-29 15:31 | NUR ---
Dr. Xavier (ID) was here, reyes received. Reoisuitioned to side.
[2019-05-29] MEDS: NOREPINEPHRINE BITARTRATE 16 MG in D5W 234 ML IV PRN (16:45)
--- NOTE | 2019-05-29 16:59 | NUR ---
Pathology Collector: Met with pt. to conduct a DCPA MANAGER DAIRY met with RnJessie, pt. is karlo and bipin. MANAGER DAIRY will call family.
--- NOTE | 2019-05-29 17:15 | NUR ---
Dr. Osei was here. Spoke to family on th phone regarding plan of care and current condition. Titrating Levophed drip down. Pt is movine extremeties more.
--- NOTE | 2019-05-29 19:50 | NUR ---
initial PM note Received patient after report from day shift nurse. Patient is resting with both eyes closed and not responding to verbal stimuli. Responds to sternal rub by grimacing. Ventilator dependent to trach with settings AC 30, tv 400, FIO2 30%. On levophed infusing at 12 mcg/min with SBP ranging from 100 to 110. GT feeding infusing at 30 cc/h. will continue to monitor as per unit protocol. bed set at lowest settings and call light within reach.
--- NOTE | 2019-05-29 20:30 | NUR ---
bed bath provided after noticing large watery stool. linen changed, gown changed and patient was cleaned. repositioned for comfort with second nurse assist.
[2019-05-29] MEDS: LATANOPROST 2.5 ML DROPS (XALATAN) OP SCH (21:05)
[2019-05-29] MEDS: AZTREONAM 1 GM in NS 50 ML IV SCH (21:13)
--- NOTE | 2019-05-29 22:30 | NUR ---
blood pressure stable at 120 systolic. levophed reduced to 10 mcg/min.
[2019-05-30] VITALS (29 sets, daily range): BP systolic 89–152
[2019-05-30] MEDS: LevALBUTEROL HCL 1.25 MG/0.5 ML *CONC.* VIAL.NEB (XOPENEX CONC.) INH SCH ×3 (00:50→19:49)
[2019-05-30] MEDS: D5/0.45 NS 1,000 ML IV SCH ×2 (01:00→06:54)
[2019-05-30] MEDS: INSULIN REGULAR, HUMAN 100 UNITS/ML, 10 ML VIAL (humuLIN R) SUBCUT PRN ×5 (01:24→23:59)
[2019-05-30] MEDS: guaiFENesin 200 MG/10 ML UDC GT SCH ×6 (03:50→23:57)
[2019-05-30 06:06] LABS: BASOPHILS % (AUTO) 0.1 % (0.0-2.0); LYMPHOCYTES # (AUTO) 0.1 K/uL (1.0-5.5); MONOCYTES # (AUTO) 0.1 K/uL (0.0-1.0); MONOCYTES % (AUTO) 0.6 % (1.7-9.3); NEUTROPHILS # (AUTO) 18.4 K/uL (1.8-7.7); RED BLOOD CELL COUNT(AUTO) 2.01 MIL/uL (4.2-6.2); WHITE BLOOD COUNT (AUTO) 18.6 K/uL (4.8-10.8)
[2019-05-30 06:22] LABS: LYMPHOCYTES % (AUTO) 0.5 % (20.5-51.5); MEAN CORPUSCULAR HEMOGLOBIN 34 pg (27-31); MEAN CORPUSCULAR HGB CONC 32 % (32-36); MEAN CORPUSCULAR VOLUME 108 fL (79.0-98.0); NEUTROPHILS % (AUTO) 98.8 % (40.0-70.0)
[2019-05-30] MEDS: NOREPINEPHRINE BITARTRATE 16 MG in D5W 234 ML IV PRN (06:25)
[2019-05-30 06:32] LABS: ALANINE AMINOTRANSFERASE 52 U/L (12-78); ALBUMIN 1.1 g/dL (3.4-4.8); ANION GAP 13 (5-15); ASPARTATE AMINOTRANSFERASE 56 U/L (10-37); CHLORIDE 114 mmol/L (98-107); CREATININE 1.87 mg/dL (0.55-1.30); SODIUM SERUM 146 mmol/L (136-145); TOTAL BILIRUBIN 0.4 mg/dL (0.0-1.0)
[2019-05-30 06:35] LABS: HEMOGLOBIN 6.9 g/dL (14.0-18.0)
[2019-05-30 06:36] LABS: HEMATOCRIT 21.7 % (36-54); PLATELET COUNT (AUTO) 11 K/uL (130-430)
[2019-05-30] MEDS: methylPREDNISolone SOD SUCC/PF 62.5 MG/ML VIAL IVP SCH ×3 (06:40→21:00)
[2019-05-30 06:54] LABS: INR 1.3 (0.80-1.20); PROTHROMBIN TIME 13.1 SECS (9.5-12.5)
[2019-05-30 07:31] LABS: TOTAL IRON BIND. CAPACITY 116 ug/dL (250-450)
--- NOTE | 2019-05-30 08:00 | NUR ---
Patient SR on monitor, and rhythm decreases to 32 observed on monitor, stays nonsustained. Will updated attending making rounds. No signs, symptoms of pain. On vent to trach, see settings. Repositioned to comfort. Shayan Martin RN
[2019-05-30 08:07] LABS: POTASSIUM 2.6 mmol/L (3.5-5.1)
[2019-05-30 08:08] LABS: CALCIUM 6.4 mg/dL (8.4-11.0); GLUCOSE 427 mg/dL (70-99); UREA NITROGEN, BLOOD 106 mg/dL (8-21)
[2019-05-30] MEDS ORDERED: K PHOS 30 MM in NS 250 ML IV ONE (08:30)
[2019-05-30] MEDS ORDERED: CALCIUM GLUCONATE 2 GM in NS 100 ML IV ONE (08:30)
[2019-05-30] MEDS: LOSARTAN POTASSIUM 50 MG TABLET (COZAAR) GT SCH (09:00)
[2019-05-30] MEDS: CHOLECALCIFEROL (VITAMIN D3) 2,000 UNIT TABLET GT SCH (09:21)
[2019-05-30] MEDS: FAMOTIDINE 20 MG TABLET GT SCH (09:21)
[2019-05-30] MEDS: MYCOPHENOLATE MOFETIL 250 MG CAPSULE GT SCH (09:22)
[2019-05-30] MEDS: PYRIDOSTIGMINE BROMIDE 60 MG TABLET GT SCH ×4 (09:23→20:59)
[2019-05-30] MEDS: MULTIVIT-MINERALS/FERROUS GLUC 15 ML UDC GT SCH (09:25)
[2019-05-30] MEDS: CYANOCOBALAMIN 1000 mCg TABLET GT SCH (09:26)
[2019-05-30] MEDS: DORZOLAMIDE HCL/TIMOLOL MAL. 10 ML EYE DROPS (COSOPT) LEFT EYE SCH ×2 (09:27→20:58)
[2019-05-30] MEDS: prednisoLONE 1% OPHTHALMIC SUSPN 5 ML OP SCH ×4 (09:27→20:57)
[2019-05-30] MEDS: BRIMONIDINE TARTRATE 0.2% 5 mL EYE DROPS LEFT EYE SCH ×2 (09:28→20:58)
--- NOTE | 2019-05-30 09:41 | NUR ---
BRADYCARDIA. REPORTED TO DR MANNING ON PT'S LOW HEART RATE, 40'S, THEN JUMPED UP TO 99 TO 104, BLOOD PRESSURE 148/89, PT ON LEVOPHED DRIP AT 10 MCG/MIN. STATED THAT HE DOES NOT NEED A MANAGER BUSINESS MANAGEMENT.
[2019-05-30] MEDS: LACTOBACILLUS RHAMNOSUS GG 1 CAP CAPSULE GT SCH ×2 (10:10→20:54)
[2019-05-30] MEDS: FLUCONAZOLE 200 MG TABLET (DIFLUCAN) GT SCH (10:11)
[2019-05-30] MEDS: AZTREONAM 1 GM in NS 50 ML IV SCH ×2 (10:23→20:53)
[2019-05-30] MEDS: SIMETHICONE 80 MG TAB.CHEW GT SCH ×3 (10:24→20:54)
[2019-05-30] MEDS: PSYLLIUM HUSK 1 PKT PACKET GT SCH ×3 (10:24→20:54)
--- NOTE | 2019-05-30 11:43 | NUR ---
SS note Noted patient unable to participate in DCPA/ICU evaluation. From [facility], bipin/karlo, full code. Phoned Donna at [facility], . Patient is not on a bed hold as he does not have [employer]. They will accept patient back if a bed is available. Patient has [facility] medical insurance. Expect he will transfer to [place] when/if stable. Found patient's daughter's phone number on the nursing Admission Assessment. Phoned Valerie, , and left a voicemail message regarding request with assistance in conducting the Discharge Plan Assessment. Notified Admitting of Valerie's correct phone number. Will await call back. Addendum: 05/30/19 at 1328 by Alicia Bryson LCSW Valerie Bronson, daughter, , returned the call. She lives in [place]. Secondary contact is Jordy Sahu, son, . Patient has only been at [facility] since May 04, 2019. Valerie is aware patient will most likely be transferred to a [facility] when stable. Valerie stated they have begun to consider a [employer] application. They are in the process of spending down. Brass Burnisher/Case Management/Plate Worker will remain available.
--- NOTE | 2019-05-30 12:00 | NUR ---
Patient on levophed drip, 10 mcg/min, decrease observe bp, and titrate down as needed. Shayan Martin RN
[2019-05-30] MEDS ORDERED: SODIUM BICARBONATE 8.4% VIAL 50 MEQ/50 ML VIAL INJ ONE (12:30)
--- NOTE | 2019-05-30 14:00 | NUR ---
Patient has large BM loose stool, gave patient complete bath, drsg sacrum changed, and linens changed. Shayan Martin RN
[2019-05-30] MEDS: 0.45% NACL 1,000 ML IV SCH ×2 (14:06→22:43)
[2019-05-30] MEDS ORDERED: PHYTONADIONE 10 MG/ML AMP SUBCUT ONE (14:45)
[2019-05-30] MEDS ORDERED: EPOETIN ALFA 4,000 UNITS/ML VIAL SUBCUT SCH (17:00)
--- NOTE | 2019-05-30 18:15 | NUR ---
Patient in bed the platlets complete, patient also had another loose brown stool large amount, cleaned and linens changed, mepilex drsg changed due to being soiled. Shayan Martin RN
--- NOTE | 2019-05-30 19:10 | NUR ---
OPENING NOTE SBAR REPORT RECEIVED FROM CONTRACT LOADER TONY. CARE ASSUMED. PT LAYING IN BED. ANO X 1. PT HAS TRACHEOSTOMY SHILEY 8.0 CONNECTED TO MECHANICAL VENT. VENT SETTINGS AC 30, TIDAL VOLUME 400, AND FiO2 30%. PT TOLERATING SETTINGS WELL. PT SINUS RHYTHM ON MONITOR. PT HAS DOUBLE LUMEN PICC LINE TO RIGHT UPPER EXTREMITY RUNNING LEVOPHED @ 4 MCG/KG/MIN AND PLATELET TRANSFUSION WHICH IS COMPLETE. PT AWAITING PRBCs TRANSFUSION. PT HAS 1+ PITTING EDEMA TO BILATERAL LOWER EXTREMITIES AND LEFT HAND. PT ALSO HAS 2+ WEEPING EDEMA TO SCROTUM. ABDOMEN SOFT NON DISTENDED.PT HAS G TUBE IN PLACE RUNNING PIVOT 1.5 @ 30 ML/HR WITH Q 4HR 200 ML WATER FLUSHES. RESIDUAL AMOUNT OF 5ML. PT HAS CUETO CATHETER DRAINING TO GRAVITY. URINE YELLOW AND CLEAR. PT HAS WOUND TO SACRUM AND RIGHT BUTTOCK. PT HAS SKIN TEARS AND MULTIPLE SCARS TO BILATERAL UPPER EXTREMITIES. PT HAS SCD'S TO BILATERAL LEGS IN PLACE. BED LOCKED IN LOWEST POSITION. SAFETY PRECAUTIONS IN PLACE. CALL LIGHT WITHIN REACH. WILL CONTINUE TO MONITOR.
--- NOTE | 2019-05-30 20:05 | NUR ---
BLOOD TRANSFUSION STARTED.
[2019-05-30] MEDS: LATANOPROST 2.5 ML DROPS (XALATAN) OP SCH (20:57)
--- NOTE | 2019-05-30 22:30 | NUR ---
BLOOD TRANSFUSION STOPPED. PT TOLERATED TRANSFUSION WELL. NO REACTIONS NOTED. WILL CONTINUE TO MONITOR.
[2019-05-31] VITALS (32 sets, daily range): BP systolic 93–143
[2019-05-31] MEDS: LevALBUTEROL HCL 1.25 MG/0.5 ML *CONC.* VIAL.NEB (XOPENEX CONC.) INH SCH ×4 (01:13→19:10)
[2019-05-31] MEDS: guaiFENesin 200 MG/10 ML UDC GT SCH ×2 (04:08→06:21)
[2019-05-31 05:46] LABS: HEMATOCRIT 26.8 % (36-54); HEMOGLOBIN 8.6 g/dL (14.0-18.0); MEAN CORPUSCULAR HEMOGLOBIN 33 pg (27-31); MEAN CORPUSCULAR HGB CONC 32 % (32-36); MEAN CORPUSCULAR VOLUME 103 fL (79.0-98.0); RED BLOOD CELL COUNT(AUTO) 2.61 MIL/uL (4.2-6.2); RED CELL DISTRIBUTION WIDTH 21.3 % (9.0-15.0); WHITE BLOOD COUNT (AUTO) 27.2 K/uL (4.8-10.8)
[2019-05-31 06:15] LABS: INR 1.2 (0.80-1.20); PROTHROMBIN TIME 11.7 SECS (9.5-12.5)
[2019-05-31] MEDS: methylPREDNISolone SOD SUCC/PF 62.5 MG/ML VIAL IVP SCH ×3 (06:20→21:44)
[2019-05-31] MEDS: INSULIN REGULAR, HUMAN 100 UNITS/ML, 10 ML VIAL (humuLIN R) SUBCUT PRN (06:22)
[2019-05-31 06:24] LABS: PLATELET COUNT (AUTO) 43 K/uL (130-430)
[2019-05-31 06:54] LABS: ATYPICAL LYMPHOCYTES % 0 % (0-0); BAND % (MANUAL) 37 % (0-6); BASOPHILS % (MANUAL) 0 % (0-2); EOSINOPHILS % (MANUAL) 0 % (0-7); LYMPHOCYTES % (MANUAL) 5 % (20-46); MONOCYTES % (MANUAL) 0 % (0-11)
[2019-05-31 07:27] LABS: ANION GAP 14 (5-15); CALCIUM 7.1 mg/dL (8.4-11.0); CHLORIDE 115 mmol/L (98-107); CREATININE 1.82 mg/dL (0.55-1.30); GLUCOSE 197 mg/dL (70-99); PHOSPHORUS 6.1 mg/dL (2.7-4.5); SODIUM SERUM 153 mmol/L (136-145)
[2019-05-31 07:31] LABS: UREA NITROGEN, BLOOD 107 mg/dL (8-21)
--- NOTE | 2019-05-31 07:31 | NUR ---
CLOSING NOTE PT LAYING IN BED. NO SIGNS OR SYMPTOMS OF DISTRESS NOTED. SBAR REPORT GIVEN TO BLANCO Lewis RN. CARE ENDORSED.
--- NOTE | 2019-05-31 07:32 | NUR ---
Opening Note Received bedside report from endorsing RN for continuation of care. Received patient resting in bed, no signs or symptoms of acute distress noted. RT at bedside. Bed locked in lowest position, bed alarm on, and call light within reach. Fall and safety precautions in place.
--- NOTE | 2019-05-31 08:15 | NUR ---
Spoke with Dr. Beth on the phone regarding patient's labs, new orders received.
--- NOTE | 2019-05-31 08:32 | NUR ---
Dr. Osei at bedside examining patient. No new orders.
[2019-05-31] MEDS ORDERED: POTASSIUM CHLORIDE 20 MEQ TAB.PRT.SR PO ONE (08:45)
--- NOTE | 2019-05-31 09:35 | NUR ---
RT NOTES Vent settings to AC [address] Marcum's order
--- NOTE | 2019-05-31 09:45 | NUR ---
MD Dr. Ignacia chin.
--- NOTE | 2019-05-31 10:25 | NUR ---
Dr. Marcum at bedside examining patient. New orders received.
[2019-05-31] MEDS: 0.45% NACL 1,000 ML IV SCH ×2 (10:30→15:32)
--- NOTE | 2019-05-31 10:30 | NUR ---
Spoke with Dr. Beth regarding patient's heart rate. Made aware of heart rate going into 30s-40s. No new orders received.
--- NOTE | 2019-05-31 11:15 | NUR ---
Nutrition F/U RD reviewed pt's current EMR record including diet Hx, physician notes, nursing notes, pertinent labs/meds/procedures, care trends, and care activity. Admission Dx: Septic shock PMH: pneumonia, septic shock, ARF, dehydration, myasthenia gravis, chronic respiratory failure, anemia, DM, severe malnutrition per physician notes Current Diet Order/Nutrition Support: Pivot 1.5 at 30 ml/hr, Rolando BID, Rolando BID, Banatrol TID, Free Water Flush: 200 Q 4hr via GT x3 days Subjective Info: Pt was seen resting in bed, +non-verbal, +intubated on vent support w/ TF infusing as per physician order. So far, 137 ml infused, providing 206 kcal. Per RN, pt has been tolerating TF well, 10 ml residual so far today. Supplements and water flush order verified w/ RN. Current TF regimen is not appropriate as it reflects Rolando 4x/day, and this is not indicated at this time. No pending plans/procedures per RN. NEW Estimated Energy Expenditure (kcals/day) -- Ve: 12.2/Temperature: 36.8 degrees Celsius 1330 kcal/day (PSU 2003 for critical illness, vent support) Estimated Protein Required (g/day) 51-76 gm/day (1-1.5 gm/kg IBW for ARF, no CRRT, and sepsis) Estimated Fluid Required (l/day) Per MD (ARF) Problem/Etiology/Signs/Symptoms Inadequate EN intake r/t EN interruption AEB no EN infusing at time of RD visit. *no longer applicable Altered GI function r/t diarrhea AEB nursing staff report of diarrhea and possible intolerance to EN formula for >3 days. *loose stool reported by RN Expected Outcomes/Goals Monitor EN tolerance and intake w/ goal of pt meeting at least 80-100% of estimated nutritional needs, labs trending WNL, normal GI function, skin integrity/wt maintenance. Dietitian Recommendations * Recommend Pivot 1.5 at 30 ml/hr, Rolando BID, Banatrol TID, Free Water Flush: 100 ml Q6h via GT Provides: 1240 kcal/day, 73 gm protein/day, and 1746 ml free water/day Meets: 93% of lower end of estimated caloric needs and 96% of upper end of estimated protein needs Follow Up High Risk: F/U in 2-days Addendum: 06/03/19 at [address] CORRECTION: Dietitian Recommendations * Recommend Pivot 1.5 at 30 ml/hr, Rolando BID, Banatrol TID, Free Water Flush: 100 ml Q6h via GT Provides: 1240 kcal/day, 73 gm protein/day, and 1746 ml free water/day Meets: 93% of estimated caloric needs and 96% of upper end of estimated protein needs
--- NOTE | 2019-05-31 11:20 | NUR ---
Dietitian Recommendations * Recommend Pivot 1.5 at 30 ml/hr, Rolando BID, Banatrol TID, Free Water Flush: 100 ml Q6h via GT Provides: 1240 kcal/day, 73 gm protein/day, and 1746 ml free water/day Meets: 93% of lower end of estimated caloric needs and 96% of upper end of estimated protein needs LP, RD Please refer to Nutrition F/U for details. Addendum: 06/03/19 at [address] CORRECTION: Dietitian Recommendations * Recommend Pivot 1.5 at 30 ml/hr, Rolando BID, Banatrol TID, Free Water Flush: 100 ml Q6h via GT Provides: 1240 kcal/day, 73 gm protein/day, and 1746 ml free water/day Meets: 93% of estimated caloric needs and 96% of upper end of estimated protein needs
--- NOTE | 2019-05-31 11:45 | NUR ---
MD Dr. Beth paged, awaiting call back.
[2019-05-31] MEDS ORDERED: AZTREONAM 1 GM in NS 50 ML IV ONE (12:00)
--- NOTE | 2019-05-31 14:02 | NUR ---
MD Dr. Ruffinium informed of pts bradycardic episodes, no new orders.
--- NOTE | 2019-05-31 14:02 | NUR ---
Spoke to Dr. Beth, informed of eMAR medications that fell off due to admission alteration to profile.
[2019-05-31] MEDS: VANCOMYCIN HCL 750 MG in NS 250 ML IV SCH (15:28)
[2019-05-31] MEDS: metroNIDAZOLE 500 mg/NS 100 ML IV SCH ×2 (15:28→21:44)
[2019-05-31] MEDS: PYRIDOSTIGMINE BROMIDE 60 MG TABLET PO SCH ×3 (15:28→21:44)
--- NOTE | 2019-05-31 16:00 | NUR ---
Wound Care/BM Wound care performed per wound care guidelines. Photographs taken and placed in chart. Patient had large BM. Pericare performed. Patient cleaned, turned, and repositioned. Bed linens changed. No signs or symptoms of acute distress noted.
--- NOTE | 2019-05-31 19:05 | NUR ---
Endorsement Endorsed bedside report to oncoming RN using SBAR approach for continuation of care.
--- NOTE | 2019-05-31 20:00 | NUR ---
OCCASIONALLY OPENS EYES SPONTANEOUSLY. DOES NOT FOLLOW COMMANDS. ABLE TO MOVE AND REACH WITH RIGHT ARM. TRACH TO VENT . SUCTIONED WITH MOD AMOUNT OF THICK YELLOW MUCUS OBTAINED. ORAL CARE GIVEN. ZAHIDA PICC LINE DRSG D/I. GT FEEDING WITH PIVOT 1.5 AT 30CC/HR. RESIDUAL CHECK 50CC. GT FLUSHED WITH 100CC H2O. CUETO CATH PATENT DRAINING CLOUDY YELLOW URINE WITH SEDIMENTS TO GRAVITY. SR. OCCASIONALLY SB, HEART RATE DIPS TO THE 40'S, UNSUSTAINED, ASYMPTOMATIC. KAYLEN SCD'S IN PLACE.
--- NOTE | 2019-05-31 20:30 | NUR ---
GT FLUSHED AGAIN WITH 100 CC H2O FOR A TOTAL OF 200CC.
--- NOTE | 2019-05-31 20:55 | NUR ---
DR. NIGEL KINNEY CALLED BACK AT THIS TIME AND MADE AWARE OF PTS MEDICATIONS THAT NEED TO BE REORDERED D/T ADMISSIONS ALTERING PT CHART.
[2019-05-31] MEDS ORDERED: LATANOPROST 2.5 ML DROPS (XALATAN) OP SCH (21:00)
--- NOTE | 2019-05-31 21:30 | NUR ---
DR MANNING HERE, UP DATED ON STATUS. NOTIFIED OF OCCASIONAL LOW HEART RATE. NO NEW ORDERS GIVEN.
[2019-05-31] MEDS: AZTREONAM 1 GM in NS 50 ML IV SCH (21:43)
[2019-05-31] MEDS ORDERED: AZTREONAM 1 GM in NS 50 ML IV SCH (22:00)
--- NOTE | 2019-05-31 22:00 | NUR ---
SUCTIONED. TURNED. HS CARE DONE.
[2019-05-31] MEDS ORDERED: guaiFENesin 200 MG/10 ML UDC PO SCH (23:00)
[2019-05-31] MEDS ORDERED: GLUCAGON,HUMAN RECOMBINANT 1 MG VIAL IVP PRN (23:00)
[2019-06-01] VITALS (31 sets, daily range): BP systolic 110–177
--- NOTE | 2019-06-01 | NUR ---
DOZES ON AND OFF. SUCTIONED WITH SAME RESULTS. TURNED. RESIDUAL CHECK 40CC. GT FLUSHED WITH 200CC H2O. 1 PACKET ASHLIE GIVEN VIA GT. ORAL CARE RENDERED.
[2019-06-01] MEDS: LevALBUTEROL HCL 1.25 MG/0.5 ML *CONC.* VIAL.NEB (XOPENEX CONC.) INH SCH ×3 (00:51→20:15)
[2019-06-01] MEDS ORDERED: LevALBUTEROL HCL 1.25 MG/0.5 ML *CONC.* VIAL.NEB (XOPENEX CONC.) INH ONE (01:01)
--- NOTE | 2019-06-01 02:00 | NUR ---
SLEPT INTERMITTENTLY. SINUS RHYTHM, DIPS TO SINUS EVE IN THE 40'S. UNSUSTAINED.
--- NOTE | 2019-06-01 04:00 | NUR ---
SUCTIONED. TURNED. ORAL CARE GIVEN. RESIDUAL CHECK 30CC, GT FLUSHED WITH 200CC H2O.GT INSERTION SITE CLEANED, DRSG CHANGED. 1 LARGE AMOUNT OF WATERY BROWN STOOL DEFECATED. CLEANED. HANANE-CARE GIVEN. SACRAL DRSG CHANGED. CHG BATH DONE. BACK CARE, CUETO CARE, Z-GUARD APPLIED TO PERINEUM, SKIN CARE RENDERED. COMPLETE LINEN CHANGE. DOES NOT ASSIST WITH TURNING. TOLERATED PROCEDURE WELL.
[2019-06-01] MEDS: methylPREDNISolone SOD SUCC/PF 62.5 MG/ML VIAL IVP SCH ×2 (05:52→13:16)
[2019-06-01] MEDS: metroNIDAZOLE 500 mg/NS 100 ML IV SCH ×3 (05:53→21:46)
--- NOTE | 2019-06-01 06:00 | NUR ---
SUCTIONED AND TURNED Q2 HRS AND PRN. UO GOOD. REMAINS IN GUARDED CONDITION.
[2019-06-01 06:33] LABS: ALANINE AMINOTRANSFERASE 51 U/L (12-78); ALBUMIN 1.2 g/dL (3.4-4.8); ANION GAP 12 (5-15); ASPARTATE AMINOTRANSFERASE 37 U/L (10-37); CHLORIDE 111 mmol/L (98-107); CREATININE 1.85 mg/dL (0.55-1.30); GLUCOSE 327 mg/dL (70-99); POTASSIUM 3.9 mmol/L (3.5-5.1); SODIUM SERUM 143 mmol/L (136-145); TOTAL BILIRUBIN 0.5 mg/dL (0.0-1.0)
[2019-06-01 06:45] LABS: HEMATOCRIT 24.6 % (36-54); MEAN CORPUSCULAR HEMOGLOBIN 33 pg (27-31); MEAN CORPUSCULAR HGB CONC 33 % (32-36); MEAN CORPUSCULAR VOLUME 101 fL (79.0-98.0); RED BLOOD CELL COUNT(AUTO) 2.42 MIL/uL (4.2-6.2); RED CELL DISTRIBUTION WIDTH 21.7 % (9.0-15.0)
[2019-06-01 06:47] LABS: UREA NITROGEN, BLOOD 136 mg/dL (8-21)
[2019-06-01 06:53] LABS: PLATELET COUNT (AUTO) 30 K/uL (130-430); WHITE BLOOD COUNT (AUTO) 19.5 K/uL (4.8-10.8)
--- NOTE | 2019-06-01 06:55 | NUR ---
DR. ELIAS KINNEY PAGED TO REPORT CRITICAL LABS AT THIS TIME. PER BINA AT THE EXCHANGE DR. GRIFFIN IS OUT OF TOWN, WITH DR. LEW COVERING FOR HIM. WILL PAGE DR. LEW AT [phone]
--- NOTE | 2019-06-01 06:58 | NUR ---
DR. VIPIN KINNEY PAGED AT THIS TIME FOR ORDERS. CASINO INVESTIGATOR FOR DR. GRIFFIN, WILL AWAIT CALL BACK. SPOKE WITH MAGGY AT THE EXCHANGE.
--- NOTE | 2019-06-01 07:00 | NUR ---
AWAITING RETURN CALL FROM MD'S TO REPORT BUN 136 AND PLATELET 30. RELAYED TO AM NURSE STEPHEN SIMEON.
--- NOTE | 2019-06-01 07:15 | NUR ---
Opening Note Received bedside report from endorsing RN for continuation of care. Received patient resting in bed, no signs or symptoms of acute distress noted. Bed locked in lowest position, bed alarm on, and call light within reach. Fall and safety precautions in place.
[2019-06-01 07:26] LABS: ATYPICAL LYMPHOCYTES % 0 % (0-0); BAND % (MANUAL) 7 % (0-6); LYMPHOCYTES % (MANUAL) 3 % (20-46)
[2019-06-01 07:27] LABS: BASOPHILS % (MANUAL) 0 % (0-2); EOSINOPHILS % (MANUAL) 0 % (0-7); MONOCYTES % (MANUAL) 2 % (0-11)
--- NOTE | 2019-06-01 08:08 | NUR ---
Paged Dr. Osei, spoke with exchange.
[2019-06-01] MEDS: SIMETHICONE 80 MG TAB.CHEW PO SCH ×3 (08:18→21:47)
[2019-06-01] MEDS: CHOLECALCIFEROL (VITAMIN D3) 2,000 UNIT TABLET PO SCH (08:18)
[2019-06-01] MEDS: ASPIRIN 81 MG TAB.CHEW PO SCH (08:18)
[2019-06-01] MEDS: AZTREONAM 1 GM in NS 50 ML IV SCH ×2 (08:18→21:46)
[2019-06-01] MEDS: MULTIVIT-MINERALS/FERROUS GLUC 15 ML UDC GT SCH (08:18)
[2019-06-01] MEDS: PSYLLIUM HUSK 1 PKT PACKET PO SCH ×3 (08:18→21:47)
[2019-06-01] MEDS: FLUCONAZOLE 200 MG TABLET (DIFLUCAN) PO SCH (08:19)
[2019-06-01] MEDS: LOSARTAN POTASSIUM 50 MG TABLET (COZAAR) PO SCH ×2 (08:19→08:34)
[2019-06-01] MEDS: FUROSEMIDE 20 MG TABLET PO SCH (08:19)
[2019-06-01] MEDS: PREDNISONE 5 MG TABLET PO SCH (08:19)
[2019-06-01] MEDS: FAMOTIDINE 20 MG TABLET PO SCH (08:19)
[2019-06-01] MEDS: CYANOCOBALAMIN 1000 mCg TABLET PO SCH (08:20)
[2019-06-01] MEDS: DORZOLAMIDE HCL/TIMOLOL MAL. 10 ML EYE DROPS (COSOPT) LEFT EYE SCH ×2 (08:20→21:49)
[2019-06-01] MEDS: PYRIDOSTIGMINE BROMIDE 60 MG TABLET PO SCH ×4 (08:20→21:47)
[2019-06-01] MEDS: MYCOPHENOLATE MOFETIL 250 MG CAPSULE PO SCH ×2 (08:20→21:47)
[2019-06-01] MEDS: prednisoLONE 1% OPHTHALMIC SUSPN 5 ML OP SCH ×4 (08:20→21:50)
[2019-06-01] MEDS: BRIMONIDINE TARTRATE 0.2% 5 mL EYE DROPS LEFT EYE SCH ×2 (08:21→21:49)
--- NOTE | 2019-06-01 08:30 | NUR ---
Noted frequent episodes of bradycardia into HR 20's-30's. Paged Dr. Beth, waiting for call back.
--- NOTE | 2019-06-01 08:35 | NUR ---
Dr. Ruffinium call back, new orders received.
[2019-06-01 08:53] LABS: INR 1.1 (0.80-1.20); PROTHROMBIN TIME 11.3 SECS (9.5-12.5)
--- NOTE | 2019-06-01 08:53 | NUR ---
New consult paged to Dr. Yin. Spoke with exchange.
[2019-06-01] MEDS ORDERED: ATROPINE SULFATE 0.4 MG/ML VIAL IVP ONE ×2 (09:00→10:00)
[2019-06-01 09:08] LABS: FIBRINOGEN > 500 mg/dL (200-400)
--- NOTE | 2019-06-01 09:15 | NUR ---
Dr. Yin in to see patient. New orders received.
[2019-06-01] MEDS ORDERED: DOPamine PREMIX 250 ML IV ONE (09:27)
[2019-06-01] MEDS ORDERED: ATROPINE SULFATE 0.4 MG/ML VIAL ONE (09:27)
--- NOTE | 2019-06-01 09:39 | NUR ---
2D ECHO being performed at bedside by instrument room technician.
--- NOTE | 2019-06-01 10:05 | NUR ---
Per Dr. Yin, initiate Dopamine drip at 1 mcg/kg/min.
[2019-06-01] MEDS: DOPamine PREMIX 250 ML IV PRN (10:22)
[2019-06-01] MEDS: ATROPINE SULFATE 0.4 MG/ML VIAL IVP PRN ×5 (11:04→20:28)
--- NOTE | 2019-06-01 11:40 | NUR ---
Dr. Junior at bedside examining patient. New orders received.
--- NOTE | 2019-06-01 12:15 | NUR ---
Spoke with patient's daughter Valerie on phone. Updated on patient status and plan of care. All questions answered clearly and education provided.
[2019-06-01] MEDS: 0.45% NACL 1,000 ML IV SCH (13:15)
[2019-06-01] MEDS: MICAFUNGIN SODIUM 100 MG in NS 100 ML IV SCH (14:12)
--- NOTE | 2019-06-01 14:36 | NUR ---
Dr. Persaud at bedside examining patient. New orders received.
[2019-06-01 15:20] LABS: FERRITIN 1522 ng/mL (30-400)
--- NOTE | 2019-06-01 16:15 | NUR ---
Wound Care Wound care performed per wound care guidelines with squeegee operator Kevan.
--- NOTE | 2019-06-01 16:15 | NUR ---
WOUND EVALUATION: Wound Consult received from Dr. Beth. Thank you, Dr. Beth, for the consult. Patient received in a Paris Bed with an IsoFlex OREN mattress with low air loss therapy initiated, awake, non-verbal, non-responsive to verbal commands. Patient is unable to turn independently. Efren Score is a 9. Past Medical History: Myasthenia Gravis, Chronic Respiratory Failure, Chronic Encephalopathy, Tracheostomy, G-tube placement. Recent Labs: WBC 19.5, RBC 2.42, hemoglobin 8.0, hematocrit 24.6, platelets 30, chloride 111, BUN 136, creatinine 1.85, glucose 327, calcium 8.0, alkaline phosphatase 408, BNP 1910, serum total protein 4.9, albumin 1.2, PTT 37.1, fibrinogen > 500. Microbiology: Blood culture results 2 negative. Urine culture results negative. MRSA screen results negative. Intrinsic factors that delay wound healing: Chronic Respiratory Failure, Chronic Encephalopathy, severe hypoalbuminemia. Extrinsic factors that delay wound healing: Immobility, loose stool. Wound Assessment: 1. Sacral-Coccygeal/Bilateral Buttocks areas: Unstageable pressure ulcer, present on admission. Wound bed has 60% red tissue, 40% black eschar (including large area of IAD/MASD around wound and inferior to bilateral buttocks). No odor, small sanguineous drainage. Periwound and surrounding tissue is moist. Site (including MASD) measures 12.0 cm x 10.5 cm. Unstageable pressure ulcer portion measures 5.6 cm x 7.0 cm. Recommend: Cleanse involved areas with normal Saline. Pat dry. Apply Calmoseptine cream to surrounding MASD areas. Apply Venelex ointment to wound bed. Cover with non-adhesive foam dressings, then ABD pad and secure with transparent dressings. Perform wound care daily, and as needed for dressing soiling or dislodgement. 2. Scrotal area: Erythema from IAD with moisture associated skin damage (100% red tissue), present on admission. Recommend: Cleanse involved areas with mild soap and water. Pat dry. Apply Calmoseptine cream to involved areas. Cover with alginate dressings, secure with paper tape over alginate dressings and ABD pads. Perform wound care daily, and as needed for dressing soiling or dislodgement. 3. Left wrist: Skin tear, present on admission. Skin tear has 100% pink tissue. No odor, no drainage. Periwound intact. Skin tear measures 0.6 cm x 0.9 cm. Recommend: Cleanse skin tear with normal saline. Apply SurePrep to elbert-tear. Cover with oil emulsion dressing, then non-adhesive foam dressing. Wrap with jackeline wrap. Perform skin tear care daily, and as needed for dressing soiling or dislodgement. 4. Right lateral wrist: Skin tear, present on admission. Skin tear has 100% red tissue. No odor, no drainage. Periwound intact. Surrounding tissue has ecchymosis. Skin tear measures 1.2 cm x 0.3 cm. Recommend: Cleanse skin tear with normal saline. Apply SurePrep to elbert-tear. Cover with oil emulsion dressing, then non-adhesive foam dressing. Wrap with jackeline wrap. Perform skin tear care daily, and as needed for dressing soiling or dislodgement. 5. Right medial wrist: Skin tear, present on admission. Skin tear has 90% white tissue, 10% red tissue. No odor, no drainage. Periwound intact. Skin tear measures 1.9 cm x 1.5 cm. Recommend: Cleanse skin tear with normal saline. Apply SurePrep to elbert-tear. Apply Venelex ointment to skin tear. Cover with non-adhesive foam dressing. Wrap with jackeline wrap. Perform skin tear care daily, and as needed for dressing soiling or dislodgement. Also recommend: Reposition patient side to side only every 2 hours with pillow support and off-load pressure areas with pillows for pressure re-distribution. Offload, elevate and float bilateral heels with pillows. Perform skin care and monitor skin integrity Q shift. Use moisture barrier cream on buttocks and other moisture susceptible areas QID and as needed for soiling. Maintain patient on a low air-loss mattress. Recommend surgical consult.
--- NOTE | 2019-06-01 16:20 | NUR ---
BM Patient had large loose BM. Pericare done. Patient cleaned, turned, and repositioned. No signs or symptoms of acute distress noted.
--- NOTE | 2019-06-01 16:50 | NUR ---
Dr. Marcum at bedside examining patient. New orders received.
--- NOTE | 2019-06-01 17:02 | NUR ---
Patient noted to have large yellow emesis. HOB raised and patient cleaned. No signs or symptoms of acute distress noted.
[2019-06-01] MEDS: EPOETIN ALFA 4,000 UNITS/ML VIAL SUBCUT SCH (17:58)
[2019-06-01] MEDS: LATANOPROST 2.5 ML DROPS (XALATAN) OP SCH (17:58)
[2019-06-01] MEDS ORDERED: MENTHOL/ZINC OXIDE 113 GM OINT. TP PRN (18:45)
--- NOTE | 2019-06-01 18:50 | NUR ---
Patient's son at bedside. Updated on patient status and plan of care. All questions answered clearly and education provided.
--- NOTE | 2019-06-01 19:10 | NUR ---
Endorsement Endorsed bedside report to oncoming RN using SBAR approach for continuation of care.
--- NOTE | 2019-06-01 20:00 | NUR ---
LETHARGIC. TRACH TO VENT. SUCTIONED WITH MOD AMOUNT OF THICK YELLOW MUCUS OBTAINED. ORAL CARE GIVEN. RESIDUAL CHECK 5CC. GT FEEDING TURNED ON WITH PIVOT 1.5 RUNNING AT 30CC/HR. GT FLUSHED WITH 200CC H2O. 1 PACKET EACH OF ASHLIE AND BANATROL GIVEN. CUETO CATH PATENT DRAINING CLEAR YELLOW URINE TO GRAVITY. FLEXISEAL IN PLACE. SINUS RHYTHM, DIPS TO SINUS EVE IN THE 40'S AT TIMES. ZAHIDA PICC LINE DRSG D/I. ON DOPAMINE DRIP AT 1 MCG/KG/MIN. KAYLEN SCD'S IN PLACE.
--- NOTE | 2019-06-01 20:28 | NUR ---
HR DIPS INTO THE 30'S AND 40'S A FEW TIMES, THOUGH UNSUSTAINED. ATROPINE 0.4 MG IVP GIVEN PER STANDING ORDER FOR HR<45. DOPAMINE INCREASED TO 2 MCG/KG/MIN.
[2019-06-01] MEDS ORDERED: ROSUVASTATIN CALCIUM 5 MG/TAB (CRESTOR) PO SCH (21:00)
[2019-06-01] MEDS: ATORVASTATIN 20 MG TABLET PO SCH (21:47)
[2019-06-01] MEDS: methylPREDNISolone SOD SUCC 40 MG/ML VIAL IVP SCH (21:50)
--- NOTE | 2019-06-01 22:00 | NUR ---
HS CARE GIVEN. SUCTIONED AND TURNED.
[2019-06-02] VITALS (35 sets, daily range): BP systolic 111–166
--- NOTE | 2019-06-02 | NUR ---
VOMITED APPROX 200CC EMESIS. CLEANED. GT FLUSH HELD. ORAL CARE. REPOSITIONED. SUCTIONED.
--- NOTE | 2019-06-02 00:45 | NUR ---
HR JUNCTIONAL IN THE HIGH 20'S TO LOW 30'S. ATROPINE 0.4MG IVP GIVEN. DOPAMINE LEFT AT 2 MCG/KG/MIN.
[2019-06-02] MEDS: ATROPINE SULFATE 0.4 MG/ML VIAL IVP PRN ×4 (00:50→21:42)
[2019-06-02] MEDS: LevALBUTEROL HCL 1.25 MG/0.5 ML *CONC.* VIAL.NEB (XOPENEX CONC.) INH SCH ×4 (01:58→20:10)
--- NOTE | 2019-06-02 02:00 | NUR ---
SUCTION. TURNED. SINUS EVE AT TIMES. ASYMPTOMATIC.
--- NOTE | 2019-06-02 04:00 | NUR ---
ORAL CARE GIVEN. SUCTIONED. CHG BATH RENDERED. CUETO CARE, BACK CARE, SKIN CARE, HANANE-CARE DONE. COMPLETE LINEN CHANGE DONE. DOES NOT ASSIST WITH TURNING. KYLEIGH PROC WELL.
[2019-06-02 05:59] LABS: BASOPHILS % (AUTO) 0.2 % (0.0-2.0); HEMATOCRIT 26.5 % (36-54); HEMOGLOBIN 8.6 g/dL (14.0-18.0); LYMPHOCYTES # (AUTO) 0.1 K/uL (1.0-5.5); LYMPHOCYTES % (AUTO) 0.9 % (20.5-51.5); MEAN CORPUSCULAR HEMOGLOBIN 33 pg (27-31); MEAN CORPUSCULAR HGB CONC 33 % (32-36); MEAN CORPUSCULAR VOLUME 100 fL (79.0-98.0); MONOCYTES # (AUTO) 0.2 K/uL (0.0-1.0); MONOCYTES % (AUTO) 1.5 % (1.7-9.3); NEUTROPHILS # (AUTO) 15.5 K/uL (1.8-7.7); NEUTROPHILS % (AUTO) 97.4 % (40.0-70.0); RED BLOOD CELL COUNT(AUTO) 2.65 MIL/uL (4.2-6.2); RED CELL DISTRIBUTION WIDTH 21.4 % (9.0-15.0); WHITE BLOOD COUNT (AUTO) 15.9 K/uL (4.8-10.8)
--- NOTE | 2019-06-02 06:00 | NUR ---
SUCTIONED AND TURNED Q2 HRS AND PRN. UO GOOD. DOPAMINE AT 2 MCG/KG/MIN. REMAINS IN GUARDED CONDITION.
[2019-06-02] MEDS: metroNIDAZOLE 500 mg/NS 100 ML IV SCH ×3 (06:11→22:40)
[2019-06-02] MEDS: methylPREDNISolone SOD SUCC 40 MG/ML VIAL IVP SCH ×3 (06:11→22:40)
[2019-06-02] MEDS: 0.45% NACL 1,000 ML IV SCH (06:11)
[2019-06-02 06:19] LABS: ALANINE AMINOTRANSFERASE 45 U/L (12-78); ALBUMIN 1.2 g/dL (3.4-4.8); ANION GAP 9 (5-15); ASPARTATE AMINOTRANSFERASE 28 U/L (10-37); CALCIUM 7.9 mg/dL (8.4-11.0); CHLORIDE 114 mmol/L (98-107); CREATININE 1.78 mg/dL (0.55-1.30); GLUCOSE 282 mg/dL (70-99); POTASSIUM 3.9 mmol/L (3.5-5.1); SODIUM SERUM 149 mmol/L (136-145); TOTAL BILIRUBIN 0.7 mg/dL (0.0-1.0)
[2019-06-02 06:55] LABS: UREA NITROGEN, BLOOD 155 mg/dL (8-21)
--- NOTE | 2019-06-02 07:00 | NUR ---
REPORT GIVEN TO AM NURSE. BUN 155 RELAYED TO AM NURSE STEPHEN BATISTA.
--- NOTE | 2019-06-02 07:20 | NUR ---
Opening Note Received plan of care via sbar from endorsing nurse Dontae RN. Completed patient round.
--- NOTE | 2019-06-02 07:20 | NUR ---
Dr. Persaud at bedside. Explained that CBC still pending and no current lab value is available. No new orders.
--- NOTE | 2019-06-02 07:30 | NUR ---
Received Critical Value for platelets of 14. Overhead paged Dr. Persaud.
--- NOTE | 2019-06-02 07:50 | NUR ---
Dr. Hung chin to report critical value of WBC. Addendum: 06/02/19 at 0802 by Jarek Ca RN Entered in error.
--- NOTE | 2019-06-02 07:50 | NUR ---
Paged Dr. Persaud to report critical value of Platelet
[2019-06-02 07:51] LABS: PLATELET COUNT (AUTO) 14 K/uL (130-430)
--- NOTE | 2019-06-02 08:15 | NUR ---
Received call back from Dr. Osei. Reported BUN. No new orders.
--- NOTE | 2019-06-02 08:20 | NUR ---
Checked residual on patient and aspirated 190 CC. Will hold water flush and tubefeeding.
[2019-06-02] MEDS: FAMOTIDINE 20 MG TABLET PO SCH (08:35)
[2019-06-02] MEDS: CHOLECALCIFEROL (VITAMIN D3) 2,000 UNIT TABLET PO SCH (08:35)
[2019-06-02] MEDS: PSYLLIUM HUSK 1 PKT PACKET PO SCH ×3 (08:35→21:43)
[2019-06-02] MEDS: ASPIRIN 81 MG TAB.CHEW PO SCH (08:36)
[2019-06-02] MEDS: FUROSEMIDE 20 MG TABLET PO SCH (08:36)
[2019-06-02] MEDS: SIMETHICONE 80 MG TAB.CHEW PO SCH ×3 (08:36→21:43)
[2019-06-02] MEDS: LOSARTAN POTASSIUM 50 MG TABLET (COZAAR) PO SCH (08:37)
[2019-06-02] MEDS: FLUCONAZOLE 200 MG TABLET (DIFLUCAN) PO SCH (08:37)
[2019-06-02] MEDS: PREDNISONE 5 MG TABLET PO SCH (08:37)
[2019-06-02] MEDS: AZTREONAM 1 GM in NS 50 ML IV SCH ×2 (08:39→21:45)
[2019-06-02] MEDS: DORZOLAMIDE HCL/TIMOLOL MAL. 10 ML EYE DROPS (COSOPT) LEFT EYE SCH ×2 (08:39→21:44)
[2019-06-02] MEDS: BALSAM PERU/CASTOR OIL 60 GM OINT...G. TP SCH (08:40)
[2019-06-02] MEDS: MYCOPHENOLATE MOFETIL 250 MG CAPSULE PO SCH ×2 (08:40→21:45)
[2019-06-02] MEDS: MULTIVIT-MINERALS/FERROUS GLUC 15 ML UDC GT SCH (08:40)
[2019-06-02] MEDS: prednisoLONE 1% OPHTHALMIC SUSPN 5 ML OP SCH ×3 (08:40→21:00)
[2019-06-02] MEDS: BRIMONIDINE TARTRATE 0.2% 5 mL EYE DROPS LEFT EYE SCH ×2 (08:40→21:45)
[2019-06-02] MEDS: PYRIDOSTIGMINE BROMIDE 60 MG TABLET PO SCH ×4 (08:41→21:43)
[2019-06-02] MEDS: CYANOCOBALAMIN 1000 mCg TABLET PO SCH (08:41)
[2019-06-02] MEDS: MICAFUNGIN SODIUM 100 MG in NS 100 ML IV SCH (11:52)
--- NOTE | 2019-06-02 12:30 | NUR ---
Checked residual from gtube and aspirated 50 CC of yellow fluid.
[2019-06-02] MEDS: VANCOMYCIN HCL 750 MG in NS 250 ML IV SCH (14:41)
[2019-06-02] MEDS: D5W 1,000 ML IV SCH (15:02)
--- NOTE | 2019-06-02 16:20 | NUR ---
RT Note: 1615 Pt placed on AC [address] Marcum's order. STEPHEN Tilley aware. Addendum: 06/02/19 at 1634 by Nicole Oliva RT Amended: Links added.
[2019-06-02] MEDS: LATANOPROST 2.5 ML DROPS (XALATAN) OP SCH (18:00)
[2019-06-02] MEDS ORDERED: EPOETIN ALFA 4,000 UNITS/ML VIAL ONE ×2 (18:47→19:02)
[2019-06-02] MEDS: EPOETIN ALFA 4,000 UNITS/ML VIAL SUBCUT SCH (18:57)
--- NOTE | 2019-06-02 19:25 | NUR ---
PM SHIFT ASSESSMENT Pt is awake/alert x3. Pt is trach to vent, tolerating current vent settings. ZAHIDA PICC with IVF infusing. Gtube with tubefeeding infusing. Duncan catheter in place and draining to gravity. Multiple wounds noted with dressings in place. Safety precautions in place, call light within reach. Will continue to monitor.
--- NOTE | 2019-06-02 19:43 | NUR ---
Closing Note Provided plan of care via sbar to receiving nurse. Completed patient round.
[2019-06-02] MEDS: ATORVASTATIN 20 MG TABLET PO SCH (21:43)
--- NOTE | 2019-06-02 21:50 | NUR ---
Patients daughter Valerie here to see patient.
--- NOTE | 2019-06-02 23:25 | NUR ---
Dr. Ruffinium here to see patient.
[2019-06-03] VITALS (34 sets, daily range): BP systolic 125–173
[2019-06-03] MEDS: ATROPINE SULFATE 0.4 MG/ML VIAL IVP PRN ×3 (01:17→21:10)
[2019-06-03] MEDS: LevALBUTEROL HCL 1.25 MG/0.5 ML *CONC.* VIAL.NEB (XOPENEX CONC.) INH SCH ×4 (01:39→20:25)
[2019-06-03] MEDS: D5W 1,000 ML IV SCH (05:06)
[2019-06-03] MEDS: methylPREDNISolone SOD SUCC 40 MG/ML VIAL IVP SCH ×3 (05:52→22:46)
[2019-06-03] MEDS: metroNIDAZOLE 500 mg/NS 100 ML IV SCH ×3 (05:52→22:46)
[2019-06-03 05:58] LABS: BASOPHILS % (AUTO) 0.2 % (0.0-2.0); EOSINOPHILS % (AUTO) 0.2 % (0.0-4.0); HEMATOCRIT 23.2 % (36-54); HEMOGLOBIN 7.5 g/dL (14.0-18.0); LYMPHOCYTES # (AUTO) 0.1 K/uL (1.0-5.5); LYMPHOCYTES % (AUTO) 0.8 % (20.5-51.5); MEAN CORPUSCULAR HEMOGLOBIN 33 pg (27-31); MEAN CORPUSCULAR HGB CONC 32 % (32-36); MEAN CORPUSCULAR VOLUME 103 fL (79.0-98.0); MONOCYTES % (AUTO) 0.2 % (1.7-9.3); NEUTROPHILS # (AUTO) 12.3 K/uL (1.8-7.7); NEUTROPHILS % (AUTO) 98.6 % (40.0-70.0); RED BLOOD CELL COUNT(AUTO) 2.25 MIL/uL (4.2-6.2); RED CELL DISTRIBUTION WIDTH 21.5 % (9.0-15.0); WHITE BLOOD COUNT (AUTO) 12.5 K/uL (4.8-10.8)
[2019-06-03 06:16] LABS: PLATELET COUNT (AUTO) 17 K/uL (130-430)
--- NOTE | 2019-06-03 07:00 | NUR ---
Dr. Persaud at bedside. Reported critical value of platelets. Received orders for infusion of 1 platelet and 1 prbc.
--- NOTE | 2019-06-03 07:00 | NUR ---
Received critical value for glucose from endorsing nurse. Paged Dr. Hill.
--- NOTE | 2019-06-03 07:15 | NUR ---
ENDORSEMENT Pt care endorsed to STEPHEN Tilley using nursing SBAR.
[2019-06-03] MEDS ORDERED: INSULIN REGULAR, HUMAN 100 UNITS/ML, 10 ML VIAL SUBCUT ONE (07:30)
--- NOTE | 2019-06-03 07:30 | NUR ---
Opening Note Received plan of care via sbar from endorsing nurse Alicia MITCHELL. Completed patient round. All safety measures met.
--- NOTE | 2019-06-03 07:30 | NUR ---
Received return call from Dr. Hill. Received orders for 15 units or regular insulin and PRN sliding scale.
--- NOTE | 2019-06-03 08:00 | NUR ---
Dr. Yin at bedside. No new orders.
--- NOTE | 2019-06-03 08:00 | NUR ---
Received Critical Value for BUN. Paged Dr. Osei
[2019-06-03] MEDS: LOSARTAN POTASSIUM 50 MG TABLET (COZAAR) PO SCH (08:49)
[2019-06-03] MEDS: PSYLLIUM HUSK 1 PKT PACKET PO SCH ×3 (08:49→21:14)
[2019-06-03] MEDS: FAMOTIDINE 20 MG TABLET PO SCH (08:50)
[2019-06-03] MEDS: CHOLECALCIFEROL (VITAMIN D3) 2,000 UNIT TABLET PO SCH (08:50)
[2019-06-03] MEDS: PREDNISONE 5 MG TABLET PO SCH (08:51)
[2019-06-03] MEDS: SIMETHICONE 80 MG TAB.CHEW PO SCH ×3 (08:51→21:15)
[2019-06-03] MEDS: FUROSEMIDE 20 MG TABLET PO SCH (08:51)
[2019-06-03] MEDS: ASPIRIN 81 MG TAB.CHEW PO SCH (08:52)
[2019-06-03] MEDS: MULTIVIT-MINERALS/FERROUS GLUC 15 ML UDC GT SCH (08:52)
[2019-06-03] MEDS: PYRIDOSTIGMINE BROMIDE 60 MG TABLET PO SCH ×4 (08:53→21:15)
[2019-06-03] MEDS: MYCOPHENOLATE MOFETIL 250 MG CAPSULE PO SCH ×2 (08:53→21:14)
[2019-06-03] MEDS: DORZOLAMIDE HCL/TIMOLOL MAL. 10 ML EYE DROPS (COSOPT) LEFT EYE SCH ×2 (08:53→21:16)
[2019-06-03] MEDS: FLUCONAZOLE 200 MG TABLET (DIFLUCAN) PO SCH (08:53)
[2019-06-03] MEDS: CYANOCOBALAMIN 1000 mCg TABLET PO SCH (08:53)
[2019-06-03] MEDS: BRIMONIDINE TARTRATE 0.2% 5 mL EYE DROPS LEFT EYE SCH ×2 (08:54→21:13)
[2019-06-03] MEDS: BALSAM PERU/CASTOR OIL 60 GM OINT...G. TP SCH (08:56)
[2019-06-03] MEDS: AZTREONAM 1 GM in NS 50 ML IV SCH ×2 (08:58→21:14)
[2019-06-03] MEDS: prednisoLONE 1% OPHTHALMIC SUSPN 5 ML OP SCH ×4 (09:00→21:16)
--- NOTE | 2019-06-03 09:00 | NUR ---
Received call from Dr. Osei. Received orders to change fluid to 1/2 NS at 66 CC/hr.
[2019-06-03 09:26] LABS: ANION GAP 12 (5-15); CHLORIDE 113 mmol/L (98-107); POTASSIUM 3.5 mmol/L (3.5-5.1); SODIUM SERUM 148 mmol/L (136-145)
[2019-06-03 09:27] LABS: CALCIUM 8.2 mg/dL (8.4-11.0); GLUCOSE 473 mg/dL (70-99)
[2019-06-03 09:28] LABS: ALANINE AMINOTRANSFERASE 48 U/L (12-78); ALBUMIN 1.2 g/dL (3.4-4.8); ASPARTATE AMINOTRANSFERASE 40 U/L (10-37); CREATININE 1.63 mg/dL (0.55-1.30); TOTAL BILIRUBIN 0.5 mg/dL (0.0-1.0); UREA NITROGEN, BLOOD 164 mg/dL (8-21)
--- NOTE | 2019-06-03 10:20 | NUR ---
Case mgt: Rec'd call from ICU nurse Trixie indicating pt's family asking about transfer--there is no current transfer order--Trixie will f/u with MD for transfer order to [facility] if stable--pt is vent dependent with G-tube, flexiseal, PICC--FIO2 at 30% --calling [facility] at [phone] to f/u with their correctional counselor/case manager--on hold--BRADLEY MITCHELL Addendum: 06/03/19 at 1037 by Sally Contreras RN Case mgt--still on hold over 20 min now with [facility]--unable to continue to hold on phone--BRADLEY MITCHELL
--- NOTE | 2019-06-03 10:30 | NUR ---
Dr. Marcum at bedside. No new orders. Spoke to patient's daughter Valerie regarding code status. Agreed to change code status from full code to modified codes for ACLS drugs only.
[2019-06-03] MEDS: ACETAMINOPHEN 650 MG/20.3 ML UDC PO PRN (11:27)
[2019-06-03] MEDS: MICAFUNGIN SODIUM 100 MG in NS 100 ML IV SCH (11:30)
[2019-06-03] MEDS: 0.45% NACL 1,000 ML IV SCH (11:31)
[2019-06-03] MEDS: INSULIN REGULAR, HUMAN 100 UNITS/ML, 10 ML VIAL (humuLIN R) SUBCUT PRN ×3 (11:44→23:18)
[2019-06-03] MEDS ORDERED: EPOETIN ALFA 4,000 UNITS/ML VIAL SUBCUT SCH (16:29)
--- NOTE | 2019-06-03 17:00 | NUR ---
Nutrition F/U RD reviewed pt's current EMR record including diet Hx, physician notes, nursing notes, pertinent labs/meds/procedures, care trends, and care activity. Admission Dx: Septic shock PMH: pneumonia, septic shock, ARF, dehydration, myasthenia gravis, chronic respiratory failure, anemia, DM, severe malnutrition per physician notes Current Diet Order/Nutrition Support: Pivot 1.5 at 30 ml/hr, Rolando BID, Banatrol TID, Free Water Flush: 200 ML q4H via GT x2 days Subjective Info: Pt was seen resting in bed, +non-verbal, +intubated on vent support w/ TF infusing as per physician order w/ family/friends present at bedside. So far, 387 ml infused, providing 581 kcal. Pt noted w/ vomiting early this morning, so TF was held, but resumed at 1030. Rectal tube present w/ a bit of stool output visualized at bedside. computer training specialist reported that pt is only on a chemical code at this time. Per EMR, plans for PRBC/platelet transfusion. RD noted Internal Affairs Investigator note 06/01/19; pt has an unstageable wound. Current TF regimen is appropriate/adequate. NEW Estimated Energy Expenditure (kcals/day) -- Ve: 12.9/Temperature: 36.3 degrees Celsius 1268 kcal/day (PSU for critical illness, vent support) Estimated Protein Required (g/day) 51-76 gm/day (1-1.5 gm/kg IBW for ARF, no CRRT, sepsis, wound healing) Estimated Fluid Required (l/day) Per MD (ARF) Problem/Etiology/Signs/Symptoms Inadequate EN intake r/t EN interruption AEB no EN infusing at time of RD visit. *no longer applicable Altered GI function r/t diarrhea AEB nursing staff report of diarrhea and possible intolerance to EN formula for >3 days. *ongoing, pt continues w/ rectal tube Expected Outcomes/Goals Monitor EN tolerance and intake w/ goal of pt meeting at least 80-100% of estimated nutritional needs, labs trending WNL, normal GI function, skin integrity/wt maintenance. Dietitian Recommendations * Recommend continuing Pivot 1.5 at 30 ml/hr, Rolando BID, Banatrol TID, Free Water Flush: 100 ml Q6h via GT Provides: 1240 kcal/day, 73 gm protein/day, and 1746 ml free water/day Meets: 98% of estimated caloric needs and 96% of upper end of estimated protein needs * Consider prokinetic agent for improved gut motility Follow Up High Risk: F/U in 2-days
--- NOTE | 2019-06-03 17:06 | NUR ---
Dietitian Recommendations * Recommend continuing Pivot 1.5 at 30 ml/hr, Rolando BID, Banatrol TID, Free Water Flush: 100 ml Q6h via GT Provides: 1240 kcal/day, 73 gm protein/day, and 1746 ml free water/day Meets: 98% of estimated caloric needs and 96% of upper end of estimated protein needs * Consider prokinetic agent for improved gut motility LP, RD Please refer to Nutrition F/U for details.
[2019-06-03] MEDS: LATANOPROST 2.5 ML DROPS (XALATAN) OP SCH (18:33)
--- NOTE | 2019-06-03 19:30 | NUR ---
Closing Note Provided plan of care via sbar to receiving nurse Alicia MITCHELL. Completed patient round.
--- NOTE | 2019-06-03 20:10 | NUR ---
FAMILY AT BEDSIDE VISITING.
[2019-06-03] MEDS: cloNIDine HCL 0.1 MG TABLET PO PRN (21:10)
[2019-06-03] MEDS: ATORVASTATIN 20 MG TABLET PO SCH (21:15)
[2019-06-03] MEDS: DOPamine PREMIX 250 ML IV PRN (23:14)
[2019-06-04] VITALS (26 sets, daily range): BP systolic 124–175
[2019-06-04] MEDS: ATROPINE SULFATE 0.4 MG/ML VIAL IVP PRN ×2 (02:30→12:41)
[2019-06-04] MEDS: LevALBUTEROL HCL 1.25 MG/0.5 ML *CONC.* VIAL.NEB (XOPENEX CONC.) INH SCH ×4 (03:44→19:42)
[2019-06-04] MEDS: metroNIDAZOLE 500 mg/NS 100 ML IV SCH ×3 (05:24→22:46)
[2019-06-04] MEDS: 0.45% NACL 1,000 ML IV SCH ×2 (05:25→17:35)
[2019-06-04] MEDS: methylPREDNISolone SOD SUCC 40 MG/ML VIAL IVP SCH ×2 (05:25→17:45)
[2019-06-04 05:59] LABS: BASOPHILS % (AUTO) 0.1 % (0.0-2.0); HEMATOCRIT 25.5 % (36-54); HEMOGLOBIN 8.4 g/dL (14.0-18.0); LYMPHOCYTES # (AUTO) 0.2 K/uL (1.0-5.5); LYMPHOCYTES % (AUTO) 1.2 % (20.5-51.5); MEAN CORPUSCULAR HEMOGLOBIN 32 pg (27-31); MEAN CORPUSCULAR HGB CONC 33 % (32-36); MEAN CORPUSCULAR VOLUME 97 fL (79.0-98.0); MONOCYTES % (AUTO) 0.1 % (1.7-9.3); NEUTROPHILS # (AUTO) 14.9 K/uL (1.8-7.7); NEUTROPHILS % (AUTO) 98.6 % (40.0-70.0); RED BLOOD CELL COUNT(AUTO) 2.61 MIL/uL (4.2-6.2); RED CELL DISTRIBUTION WIDTH 18.7 % (9.0-15.0); WHITE BLOOD COUNT (AUTO) 15.1 K/uL (4.8-10.8)
[2019-06-04 06:12] LABS: PLATELET COUNT (AUTO) 37 K/uL (130-430)
[2019-06-04 06:39] LABS: ALANINE AMINOTRANSFERASE 47 U/L (12-78); ALBUMIN 1.3 g/dL (3.4-4.8); ANION GAP 5 (5-15); ASPARTATE AMINOTRANSFERASE 28 U/L (10-37); CHLORIDE 115 mmol/L (98-107); GLUCOSE 136 mg/dL (70-99); SODIUM SERUM 148 mmol/L (136-145); TOTAL BILIRUBIN 0.6 mg/dL (0.0-1.0)
[2019-06-04 06:47] LABS: POTASSIUM 2.4 mmol/L (3.5-5.1)
[2019-06-04 06:48] LABS: UREA NITROGEN, BLOOD 148 mg/dL (8-21)
--- NOTE | 2019-06-04 07:10 | NUR ---
ENDORSEMENT Pt care endorsed to STEPHEN POWELL using nursing SBAR.
--- NOTE | 2019-06-04 07:20 | NUR ---
RECEIVED NURSING REPORT FROM PROSTHETIC TECHNICIAN ANIRUDH Crenshaw
--- NOTE | 2019-06-04 07:30 | NUR ---
REPORT TO REGARDING OF POTASSIUM LEVEL 2.4, ORDERED GIVE K-RIDER 40 MEQ IVPB X ONCE, AND FOLLOW UP CBC, CMP TOMORROW A.M
[2019-06-04] MEDS ORDERED: KCL 40 mEq in 100 mL (PREMIX) 100 ML IV ONE (08:15)
--- NOTE | 2019-06-04 08:50 | NUR ---
SEE PATIENT, ORDERED TURN OFF DOPAMIN DRIP
--- NOTE | 2019-06-04 09:00 | NUR ---
DR. VITALE SEE PATIENT, ORDERED COLLECTION STOOL C-DIFF TOXIN
--- NOTE | 2019-06-04 09:17 | NUR ---
CORE MANAGER DR GRIFFIN CALLED AND REPORTED LATEST RESULTS HEMOGLOBIN, HEMATOCRIT, PLATELET COUNT, NO NEW ORDERS.
[2019-06-04] MEDS ORDERED: ONDANSETRON HCL 4 MG/2 ML VIAL IVP PRN (09:45)
[2019-06-04] MEDS: AZTREONAM 1 GM in NS 50 ML IV SCH ×2 (10:04→22:15)
[2019-06-04] MEDS: DORZOLAMIDE HCL/TIMOLOL MAL. 10 ML EYE DROPS (COSOPT) LEFT EYE SCH ×2 (10:06→22:16)
[2019-06-04] MEDS: SIMETHICONE 80 MG TAB.CHEW PO SCH ×3 (10:07→22:27)
[2019-06-04] MEDS: BRIMONIDINE TARTRATE 0.2% 5 mL EYE DROPS LEFT EYE SCH ×2 (10:07→22:16)
[2019-06-04] MEDS: prednisoLONE 1% OPHTHALMIC SUSPN 5 ML OP SCH ×4 (10:07→22:17)
[2019-06-04] MEDS: PSYLLIUM HUSK 1 PKT PACKET PO SCH ×3 (10:07→21:00)
[2019-06-04] MEDS: MULTIVIT-MINERALS/FERROUS GLUC 15 ML UDC GT SCH (10:11)
[2019-06-04] MEDS: LOSARTAN POTASSIUM 50 MG TABLET (COZAAR) PO SCH (10:11)
[2019-06-04] MEDS: PYRIDOSTIGMINE BROMIDE 60 MG TABLET PO SCH ×4 (10:12→22:27)
[2019-06-04] MEDS: MYCOPHENOLATE MOFETIL 250 MG CAPSULE PO SCH ×2 (10:12→22:27)
[2019-06-04] MEDS: CYANOCOBALAMIN 1000 mCg TABLET PO SCH (10:12)
[2019-06-04] MEDS: CHOLECALCIFEROL (VITAMIN D3) 2,000 UNIT TABLET PO SCH (10:12)
[2019-06-04] MEDS: ASPIRIN 81 MG TAB.CHEW PO SCH (10:13)
[2019-06-04] MEDS: FLUCONAZOLE 200 MG TABLET (DIFLUCAN) PO SCH (10:13)
[2019-06-04] MEDS: BALSAM PERU/CASTOR OIL 60 GM OINT...G. TP SCH (10:13)
[2019-06-04] MEDS: FUROSEMIDE 20 MG TABLET PO SCH (10:13)
[2019-06-04] MEDS: FAMOTIDINE 20 MG TABLET PO SCH (10:13)
[2019-06-04] MEDS: MICAFUNGIN SODIUM 100 MG in NS 100 ML IV SCH (11:33)
[2019-06-04] MEDS: cloNIDine HCL 0.1 MG TABLET PO PRN (11:34)
[2019-06-04] MEDS: INSULIN REGULAR, HUMAN 100 UNITS/ML, 10 ML VIAL (humuLIN R) SUBCUT PRN ×2 (11:47→17:41)
[2019-06-04] MEDS ORDERED: VANCOMYCIN HCL 1,000 MG in NS 250 ML IV SCH (13:00)
--- NOTE | 2019-06-04 13:10 | NUR ---
SEE PATIENT, AND UPDATED PATIENT,S CONDITION WITH PATIENT,S DAUGHTER [place]
[2019-06-04] MEDS: LATANOPROST 2.5 ML DROPS (XALATAN) OP SCH (17:35)
--- NOTE | 2019-06-04 18:00 | NUR ---
RIGHT UPPER ARM PICC LINE DRESSING CHANGED WITH STERILE SKILL
--- NOTE | 2019-06-04 19:21 | NUR ---
GIVE COMPLETE NURSING REPORT TO ECOTHERAPIST MAHENDRA Crenshaw
--- NOTE | 2019-06-04 20:30 | NUR ---
DR MANNING OK Transfer to Telemetry if, ok with Integrity Engineer.
--- NOTE | 2019-06-04 20:34 | NUR ---
DR PALMER Ok to transfer to Telemetry if Atropine can be pushed, for bradycardia.
--- NOTE | 2019-06-04 21:10 | NUR ---
TELE TRANSFER Pt transferred to tele 103A with second RN present and RT team. VSS. All belongings sent with patient. Report given using nursing SBAR.
--- NOTE | 2019-06-04 21:40 | NUR ---
REPORT RECEIVED PATIENT FROM ICU. TRACH TO VENT AC28 FI02 30% TV 400. GT FEEDING AND IVF INFUSING ORDERED. FAMILY AT BEDSIDE. NO C/O PAIN AT THIS TIME. BED IN LOWEST LOCKED POSITION WITH ALARM ON. HOB ELEVATED 30 DEGREES. CALL LIGHT WITH IN REACH.
--- NOTE | 2019-06-04 21:47 | NUR ---
MED PASS PATIENT DUE MEDICATIONS GIVEN. GT FEEDING NO RESIDUAL OBTAINED. VITAL SIGNS STABLE.
[2019-06-04] MEDS: ATORVASTATIN 20 MG TABLET PO SCH (22:26)
[2019-06-05] VITALS (7 sets, daily range): BP systolic 132–175
[2019-06-05] MEDS: INSULIN REGULAR, HUMAN 100 UNITS/ML, 10 ML VIAL (humuLIN R) SUBCUT PRN ×4 (00:29→18:17)
--- NOTE | 2019-06-05 00:29 | NUR ---
BLD SUGAR FINGER STICK SUGAR 176 COVERED WITH 2 UNITS INSULIN PER SLIDING SCALE COVERAGE.
--- NOTE | 2019-06-05 01:45 | NUR ---
ROUNDS PATIENT RESTING IN BED. NO DISTRESS NOTED. CALL LIGHT WITH IN REACH.
--- NOTE | 2019-06-05 03:15 | NUR ---
AM CARE AM CARE DONE. LINENS CHANGED.
[2019-06-05] MEDS: LevALBUTEROL HCL 1.25 MG/0.5 ML *CONC.* VIAL.NEB (XOPENEX CONC.) INH SCH ×3 (03:51→14:23)
[2019-06-05] MEDS: 0.45% NACL 1,000 ML IV SCH (04:55)
[2019-06-05] MEDS: metroNIDAZOLE 500 mg/NS 100 ML IV SCH (05:02)
--- NOTE | 2019-06-05 05:02 | NUR ---
ATB PATIENT DUE ANTIBIOTIC INFUSED. PICC LINE INTACT.
[2019-06-05] MEDS: methylPREDNISolone SOD SUCC 40 MG/ML VIAL IVP SCH ×2 (06:02→18:18)
--- NOTE | 2019-06-05 06:30 | NUR ---
CLOSING NOTES PATIENT CURRENT VENT SETTINGS TOLERATED. GT FEEDING NO RESIDUAL OBTAINED. IVF INFUSING. PATIENT NEEDS ATTENDED. BED IN LOWEST LOCKED POSITION WITH ALARM ON. CALL LIGHT WITH IN REACH.
[2019-06-05 07:23] LABS: BASOPHILS % (AUTO) 0.2 % (0.0-2.0); HEMATOCRIT 24.5 % (36-54); HEMOGLOBIN 8.1 g/dL (14.0-18.0); LYMPHOCYTES # (AUTO) 0.3 K/uL (1.0-5.5); LYMPHOCYTES % (AUTO) 1.7 % (20.5-51.5); MEAN CORPUSCULAR HEMOGLOBIN 32 pg (27-31); MEAN CORPUSCULAR HGB CONC 33 % (32-36); MEAN CORPUSCULAR VOLUME 98 fL (79.0-98.0); MONOCYTES # (AUTO) 0.1 K/uL (0.0-1.0); MONOCYTES % (AUTO) 0.3 % (1.7-9.3); NEUTROPHILS # (AUTO) 15.5 K/uL (1.8-7.7); NEUTROPHILS % (AUTO) 97.8 % (40.0-70.0); RED CELL DISTRIBUTION WIDTH 18.3 % (9.0-15.0); WHITE BLOOD COUNT (AUTO) 15.8 K/uL (4.8-10.8)
--- NOTE | 2019-06-05 07:26 | NUR ---
RN OPENING NOTE PATIENT IS AWAKE AND ALERT SITTING UP IN BED. NO SIGNS OF ANY DISTRESS, BREATHING IS EQUAL AND NON LABORED. PATIENT HAS ALL SAFETY PRECAUTIONS IN PLACE. PATIENT HAS NO NEEDS AT THIS TIME. WILL CONTINUE TO MONITOR.
[2019-06-05 07:38] LABS: ALANINE AMINOTRANSFERASE 46 U/L (12-78); ALBUMIN 1.3 g/dL (3.4-4.8); ANION GAP 8 (5-15); ASPARTATE AMINOTRANSFERASE 27 U/L (10-37); CALCIUM 7.9 mg/dL (8.4-11.0); CHLORIDE 118 mmol/L (98-107); CREATININE 1.57 mg/dL (0.55-1.30); GLUCOSE 211 mg/dL (70-99); SODIUM SERUM 152 mmol/L (136-145); TOTAL BILIRUBIN 0.6 mg/dL (0.0-1.0)
[2019-06-05 07:47] LABS: PLATELET COUNT (AUTO) 23 K/uL (130-430)
--- NOTE | 2019-06-05 07:55 | NUR ---
PAGED PAGED MIA BROOKS AT [phone] SPOKE WITH CAROLYN.
[2019-06-05 08:05] LABS: POTASSIUM 2.6 mmol/L (3.5-5.1)
[2019-06-05 08:07] LABS: UREA NITROGEN, BLOOD 141 mg/dL (8-21)
[2019-06-05] MEDS ORDERED: POTASSIUM CHLORIDE 20 MEQ/PKT PACKET PO ONE (08:30)
[2019-06-05] MEDS ORDERED: POTASSIUM CHLORIDE 40 MEQ in NS 250 ML IV ONE (08:30)
--- NOTE | 2019-06-05 08:30 | NUR ---
DR. MANNING SPOKE WITH DR. MANNING INFORMED OF POTASSIUM LEVEL, ORDERS WERE RECIEVED. PATIENT SCHEDULED MEDICATION GIVEN PER ORDER. PATIENT ALSO MEDICATED FOR ELEVATED BP ORDERED. PATIENT HAD MODERATE AMOUNT OF COFFEE GROUND EMESIS AFTER MEDICATION WAS GIVEN, DR. PALMRE AT BEDSIDE. AWARE. PATIENTS METINON HELD DUE TO CANT BE CRUSHED IN GTUBE PER PHARMACY . PATIENTS DAUGHTER IS AT BED SIDE. PATIENTS DAUGHTER MADE AWARE OF MEDICATION. PATIENT IS AWAKE AND ALERT, ABLE TO COMMUNICATE THROUGH KNODDING, AND POINTING WITH FINGER. PATIENT EDUCATED INDUSTRIAL RELATIONS SPECIALIST LIGHT, CALL LIGHT IS WITH PATIENT. PATIENT HAS NO OTHER NEEDS AT THIS TIME. WILL CONTINUE TO MONITOR.
[2019-06-05] MEDS: PSYLLIUM HUSK 1 PKT PACKET PO SCH ×2 (08:33→15:31)
[2019-06-05] MEDS: ASPIRIN 81 MG TAB.CHEW PO SCH (08:34)
[2019-06-05] MEDS: SIMETHICONE 80 MG TAB.CHEW PO SCH ×2 (08:35→15:30)
[2019-06-05] MEDS: LOSARTAN POTASSIUM 50 MG TABLET (COZAAR) PO SCH (08:35)
[2019-06-05] MEDS: cloNIDine HCL 0.1 MG TABLET PO PRN ×2 (08:35→15:35)
[2019-06-05] MEDS: CHOLECALCIFEROL (VITAMIN D3) 2,000 UNIT TABLET PO SCH (08:36)
[2019-06-05] MEDS: PYRIDOSTIGMINE BROMIDE 60 MG TABLET PO SCH ×3 (08:37→17:00)
[2019-06-05] MEDS: CYANOCOBALAMIN 1000 mCg TABLET PO SCH (08:37)
[2019-06-05] MEDS: FUROSEMIDE 20 MG TABLET PO SCH (08:37)
[2019-06-05] MEDS: FAMOTIDINE 20 MG TABLET PO SCH (08:38)
[2019-06-05] MEDS: BRIMONIDINE TARTRATE 0.2% 5 mL EYE DROPS LEFT EYE SCH (08:38)
[2019-06-05] MEDS: DORZOLAMIDE HCL/TIMOLOL MAL. 10 ML EYE DROPS (COSOPT) LEFT EYE SCH (08:39)
[2019-06-05] MEDS: prednisoLONE 1% OPHTHALMIC SUSPN 5 ML OP SCH ×3 (08:39→18:10)
[2019-06-05] MEDS: MYCOPHENOLATE MOFETIL 250 MG CAPSULE PO SCH (08:40)
[2019-06-05] MEDS: MULTIVIT-MINERALS/FERROUS GLUC 15 ML UDC GT SCH (08:40)
[2019-06-05] MEDS: FLUCONAZOLE 200 MG TABLET (DIFLUCAN) PO SCH (09:15)
--- NOTE | 2019-06-05 09:35 | NUR ---
DR. FELIX MADE AWARE OF LOW PLATELET COUNT, MD ALSO MADE AWARE OF COFFEE GROUND EMESIS ORDERS WERE RECEIVED, OK TO STOP CELCPHET. PATIENT IS AWAKE AND ALERT WITH EYES OPEN NO SIGNS OF ACUTE DISTRESS, BREATHING IS EQUAL AND NON LABORED. PATIENT HAS ALL SAFETY PRECAUTIONS IN PLACE. CALL LIGHT IS WITH HIM EDUCATED TO USE FOR ASSISTANCE. PATIENTS DAUGHTER IS AT BEDSIDE. NO OTHER NEEDS AT THIS TIME.
--- NOTE | 2019-06-05 09:45 | NUR ---
DR. GRIFFIN AT NURSES STATION , SAW PATIENT AND SPOKE WITH PATIENTS DAUGHTER REGARDING PLAN OF CARE.
[2019-06-05] MEDS ORDERED: AZTREONAM 1 GM in NS 50 ML IV SCH (10:00)
[2019-06-05 10:06] LABS: FREE KAPPA LIGHT CHAIN SERUM 37.3 mg/L (3.3-19.4); FREE LAMBDA LIGHT CHAIN SERUM 28.3 mg/L (5.7-26.3); KAPPA & LAMBDA LT CHAIN RATIO 1.32 (0.26-1.65)
[2019-06-05] MEDS: BALSAM PERU/CASTOR OIL 60 GM OINT...G. TP SCH (10:32)
--- NOTE | 2019-06-05 11:12 | NUR ---
DC Planning: Phoned [facility] dept # [phone] reporting pt 's clinical status and stable for [facility] location. Per Valerie, the pt went to both facilities for various treatment needs. She agreed with the transfer. s/w Anthony and faxed dcp order and progress notes to Rebekah/healthcare applications analyst [facility] fax#[phone], tel #[phone]. Addendum: 06/05/19 at 1335 by Delfino Reyna RN [facility]: she will try to honor the dtr's request in finding bed at [facility] location other grijalva the pt may need transferring to [facility] where the pt's pcp is. -- nancy Padilla made aware and she may call nursing station for update after 1630. Addendum: 06/05/19 at 1529 by Delfino Reyna RN >> Called back from Rebekah, [facility] is not accepting. The pt needs to go to [facility] location, tentatively transfer after 7 pm tonight. Rebekah will call nursing station for further transfer instructions. KYM Lemos for STEPHEN Quintana made -- Nancy/Valerie lowery aware via phone # [phone]. She somewhat agreed but she will be calling [facility] for possible transfer pt to [facility].
[2019-06-05] MEDS: FLUCONAZOLE 100 mg/ NS 50 ML IV SCH ×2 (11:15→12:58)
[2019-06-05] MEDS ORDERED: LEVOFLOXACIN 250 MG/D5W 50 ML IV SCH (11:15)
--- NOTE | 2019-06-05 11:20 | NUR ---
DR. MANNING SPOKE WITH MD, WOULD LIKE CONSULT PLACE FOR DR. SHAFER, ORDERS PLACED.
--- NOTE | 2019-06-05 11:23 | NUR ---
Neuro consult called: for Dr. Lopez, regarding clearance, ordered by Dr. Beth, spoke with
--- NOTE | 2019-06-05 11:48 | NUR ---
MEDICATION PATIENTS SCHEDULED MEDICATION GIVEN ORDERED. PATIENT IS AWAKE AND ALERT, WITH EYES OPEN, DAUGHTER IS AT BEDSIDE. PATIENT SHOWS NO SIGNS OF ANY DISTRESS, BREATHING IS EQUAL AND NON LABORED. ALL SAFETY PRECAUTIONS IN PLACE. CALL LIGHT IS WITH PATIENT. PATIENT IS CLOSE TO NURSES STATION.
[2019-06-05 12:06] LABS: A/G RATIO 0.6 (0.7-1.7); ALBUMIN 1.5 g/dL (2.9-4.4); ALPHA-1-GLOBULIN 0.4 g/dL (0.0-0.4); ALPHA-2-GLOBULIN 0.6 g/dL (0.4-1.0); BETA GLOBULIN 0.9 g/dL (0.7-1.3); GAMMA GLOBULIN 0.5 g/dL (0.4-1.8); GLOBULIN, TOTAL 2.4 g/dL (2.2-3.9); M-SPIKE Not Observed g/dL (Not Observed)
--- NOTE | 2019-06-05 12:50 | NUR ---
PAGED PAGED ALYSON HEWITT AT [phone] SPOKE WITH LUCIANA.
[2019-06-05] MEDS: ACETAMINOPHEN 650 MG/20.3 ML UDC PO PRN (12:58)
--- NOTE | 2019-06-05 12:58 | NUR ---
PATIENT IS COMPLAINING OF PAIN IN THE ABDOMEN, MEDICATED PER ORDER. PATIENT IS AWKAE AND ALERT WITH EYES OPEN. NO SIGNS OF ANY DISTRESS, BREATHING IS EQUAL AND NON LABORED. PATIENT HAS NO OTHER NEEDS AT THIS TIME. CALL LIGHT IS WITH HIM EDUCATED TO USE FOR ASSISTANCE. PATIENT IS CLOSE OT NURSES STATION.
--- NOTE | 2019-06-05 13:00 | NUR ---
spoke with md. patients daughter was concerned about the Diflucan po and iv, wanted me to verify with md alston to give even though patient has received oral Diflucan. per md alston to still give iv Diflucan, stop po Diflucan. patient made aware. patient complains of pain in his abdomen. Dr. Argueta , dr. Marcum are aware. patient medicated with Tylenol as requested. patient has all safety precautions in place. call light is with him. patient has been able to push for need, patient is non verbal. patient daughter has left to have lunch states she will be back in a little bit. patient is close to nurses station. no other needs at this time. Addendum: 06/05/19 at 2036 by Lilian Quiros RN ACCU CHEK ALSO DONE, COVERAGE WAS GIVEN ORDERED.
--- NOTE | 2019-06-05 14:13 | NUR ---
spoke with Sandra from [facility]. report was given. wants platelets transfused prior to transfer. will call us back when she has a bed available. dr. manning is at [place] [facility]. ok to transfer patient. ok if Dr. chen does not see patient prior to transfer. Addendum: 06/05/19 at 2040 by Lilian Quiros RN PER DR. MANNING HAVE LAB DRAW POTASSIUM LEVELS AT 1700 IF PATIENT IS STILL AT OUR FACILITY.
[2019-06-05] MEDS ORDERED: MORPHINE 2 MG/ML INJ. SYRINGE IVP PRN (14:30)
--- NOTE | 2019-06-05 15:39 | NUR ---
medication patients scheduled medication given per order. patient medicated for elevated blood pressure as ordered. patient is sitting up in bed. patients family at bed side. patient has all safety precautions in place. call light is with him , educated to use for assistance. will continue to monitor.
--- NOTE | 2019-06-05 16:20 | NUR ---
TRANSFER TRANSFERRED VIA GURNEY , AMBULANCE WITH RN. PATIENT G-TUBE CLAMPED, PICC LINE, ALSO SALINE LOCKED WITH CAPS. PATIENTS id BAND REMOVED, PLACED NEW ID BAND WITH NAME AND ONLY. PATIENT HAS ALL BELONGINGS WITH HIM. DAUGHTER IS AWARE OF TRANSFER AND SIGNED TRANSFER ACKNOWLEDGEMENT. PATIENT LEFT AND WILL MEET PATIENT AT [facility]. PATIENTS TELEMONITOR REMOVED. FLEXISEAL IN PLACED. BAG CHANGED. PATIENTS CUETO CATHETER IS DRAINING TO GRAVITY. LEFT IN PLACE FOR TRANSFER
--- NOTE | 2019-06-05 16:35 | NUR ---
BLOOD PLATELETS STARTED. PLATELETS STARTED ORDERED. 2 RN VERIFIED BLOOD AGAINST, PATIENT ID BAND AND INFORMATION OLEG RN. PATIENTS PRETRANSFUSION VITALS DONE TEMPERATURE OF 96.8 PULSE OF 48 RR AT 17 BLOOD PRESSURE OF 153/76 TAKEN AT 1630. PATIENT EDUCATED ON SIGNS AND SYMPTOMS TO REPORT FOR REACTION DAUGHTER IS ALSO AT BEDSIDE ALSO EDUCATED. RN TO STAY WITH PATIENT FOR FIRST 15 MIN OF TRANSFUSION. PATIENT HAS ALL SAFETY PRECAUTIONS IN PLACE. CALL LIGHT IS WITH HIM. NO SIGNS OF ANY DISTRESS, BREATHING IS EQUAL AND NON LABORED.
--- NOTE | 2019-06-05 16:50 | NUR ---
15 PAST START OF TRANFUSION VITAL SIGNS ARE TEMP OF 96.6 PULSE OF 50 RR OF 16 BP OF 132/63. PATIENT HAS NO COMPLAINTS AT THIS TIME. NO SIGNS OF ANY REACTION OF FROM. PATIENT IS TOLERATING WELL. PATIENTS DAUGHTER IS AT BED SIDE. EDUCATED FIELD SERVICE ENGINEER LIGHT, CALL LIGHT IS WITH PATIENT. PATIENT HAS ALL SAFETY PRECAUTIONS IN PLACE. PATIENT HAS NO OTHER NEEDS AT THIS TIME.
--- NOTE | 2019-06-05 16:59 | NUR ---
[facility] SPOKE WITH JESUS ALBERTO FROM [facility]. PATIENT WILL GOING TO [facility], ROOM [address]. SWIMMING COACH OR INSTRUCTOR TIME WITH BE 1830. PHONE NUMBER TO GIVE REPORT IS . Addendum: 06/05/19 at 2046 by Lilian Quiros RN FAMILY MEMBER AT BEDSIDE, AWARE OF TRANSFER PLANS
--- NOTE | 2019-06-05 17:06 | NUR ---
PAIN PATIENT IS COMPLAINING OF ABDOMINAL PAIN AGAIN ALSO PAIN WHEN MOVED. PATIENT MEDICATED REQUESTED PRIOR TO WOUND CARE. PATIENT IS AWAKE AND ALERT SITTING IN BED, BREATHING IS EQUAL AND NON LABORED. PATIENT HAS ALL SAFETY PRECAUTIONS IN PLACE. CALL LIGHT IS WITH HIM, EDUCATED TO USE FOR ASSISTANCE.
[2019-06-05] MEDS: LATANOPROST 2.5 ML DROPS (XALATAN) OP SCH (18:18)
--- NOTE | 2019-06-05 18:50 | NUR ---
TRANSFUSION COMPLETE TRANSFER IS HERE. TRANSFUSION COMPLETE, VITAL SIGNS ARE TEMP OF 96.8 PULSE OF 57 RR OF 17 BLOOD PRESSURE OF 163/82. REPORT WAS ENDORSED TO TRANSFER NURSE. NO FURTHER QUESTIONS. REPORT WAS ALSO CALLED TO VIK THE CHARGE NURSE AT [facility]. WITH NO FURTHER QUESTIONS. CALL BACK NUMBER PROVIDED.
--- NOTE | 2019-06-12 12:57 | NUR ---
DR WILSON REQUESTED TO FAX THE LAB RESULTS TO [place] DR ACEVEDO CAME AND REQUESTED TO FAX THE LAB RESULTS HE GOT FROM [facility] TO [facility] FOR PATIENT ERNESTO JAMES WHO IS IN [place] RIGHT NOW. SPOKE TO HEMA, CHARGE NURSE AND GAVE THEIR FAX NOS.
== END 2019-06-05 19:20 | disposition short-term general hospital (02) | DRG 870 ==
LOC: SED 22:26 → UNDOADMIN 05-27 06:09 → SIC 05-27 06:09 → SED 05-27 08:05 → STU 06-04 22:04
PROVIDERS: ADMIT Family Medicine; ATTEND Family Medicine
PROC: 5A1955Z Respiratory Ventilation, Greater than 96 Consecutive Hours (ICD-10-PCS; principal; 2019-05-27)
PROC: 02HV33Z Insertion of Infusion Device into Superior Vena Cava, Percutaneous Approach (ICD-10-PCS; 2019-05-28)
PROC: 30233R1 Transfusion of Nonautologous Platelets into Peripheral Vein, Percutaneous Approach (ICD-10-PCS; 2019-05-30)
PROC: 30233N1 Transfusion of Nonautologous Red Blood Cells into Peripheral Vein, Percutaneous Approach (ICD-10-PCS; 2019-05-30)
DX: A41.9 Sepsis, unspecified organism (principal); J69.0 Pneumonitis due to inhalation of food and vomit; R65.21 Severe sepsis with septic shock; E43 Unspecified severe protein-calorie malnutrition; N17.0 Acute kidney failure with tubular necrosis; G93.41 Metabolic encephalopathy; J96.20 Acute and chronic respiratory failure, unspecified whether with hypoxia or hypercapnia; C90.00 Multiple myeloma not having achieved remission; Z99.11 Dependence on respirator [ventilator] status; Z68.1 Body mass index [BMI] 19.9 or less, adult; J91.8 Pleural effusion in other conditions classified elsewhere; E87.0 Hyperosmolality and hypernatremia; L89.152 Pressure ulcer of sacral region, stage 2; D69.6 Thrombocytopenia, unspecified; I12.9 Hypertensive chronic kidney disease with stage 1 through stage 4 chronic kidney disease, or unspecified chronic kidney disease; E11.22 Type 2 diabetes mellitus with diabetic chronic kidney disease; D50.9 Iron deficiency anemia, unspecified; E11.65 Type 2 diabetes mellitus with hyperglycemia; N18.9 Chronic kidney disease, unspecified; E77.8 Other disorders of glycoprotein metabolism; G70.00 Myasthenia gravis without (acute) exacerbation; Z74.01 Bed confinement status; Z87.891 Personal history of nicotine dependence; Z93.0 Tracheostomy status; Z88.0 Allergy status to penicillin; Z88.8 Allergy status to other drugs, medicaments and biological substances; Z79.82 Long term (current) use of aspirin; Z79.899 Other long term (current) drug therapy
CPT/HCPCS: 36415; 36600; 71045; 71250-TC; 80048; 80053; 80202-TC; 81000-TC; 82607; 82728; 82746; 82784; 82803-TC; 82962; 83540-TC; 83550-TC; 83605; 83735-TC; 83880; 84100-TC; 84132-TC; 84155; 84165; 84484; 85007; 85025; 85027; 85384-TC; 85610-TC; 85730-TC; 86886; 86900; 86901; 86920; 87040-TC; 87081; 87086; 87230-TC; 87899; 93005; 93306; 94002; 94003; 94640; 96361; 96365; 99291; C1751; C1769; G0378; J0461; J0610; J0885; J1030; J1265; J1450; J1720; J1815; J1956; J2060; J2248; J2270; J2405; J2543; J2930; J3370; J3430; J3480; J3490; J7030; J7040; J7042; J7050; J7060; J7512; J7517; J7612; J7613; P9021; P9034